=== PATIENT | male | born 1945 | race Caucasian/White ===

== ENCOUNTER 2020-06-24 08:28 | Inpatient (IN) | payer MEDICARE ==
[2020-06-24] MEDS ORDERED: Sodium Chloride 0.9% 1,000 ML IV ONE (08:34)
[2020-06-24] MEDS ORDERED: Sodium Chloride 0.9% 2.5 ML Syringe FLUSH PRN ×3 (08:34→12:02)
[2020-06-24] MEDS ORDERED: Sodium Chloride 0.9% 10 ML SDV IV PRN (08:34)
[2020-06-24] MEDS ORDERED: Sodium Chloride 0.9% 10 ML Syringe FLUSH PRN (08:34)
[2020-06-24] MEDS ORDERED: Sodium Chloride 0.9% 1,000 ML IV STA (08:34)
[2020-06-24] MEDS ORDERED: Ondansetron 4 MG/2 ML SDV IVPUSH ONE (08:36)
--- NOTE | 2020-06-24 09:03 | CT ---
Indication: Stroke Technique: Volumetric multidetector CT images of the head were obtained without the administration of low osmolar intravenous contrast. Comparison: None available Findings: There is no intra-axial or extra-axial fluid collection. There is no mass effect or midline shift. There is age-related cortical atrophy with mild sulcal widening and ex vacuo dilatation of the lateral ventricles. There are old lacunar changes of the basal ganglia. There is mild to moderate chronic small vessel disease change within the subcortical and periventricular white matter. There is demonstration of questionable lost marques-white differentiation of the medial superior aspect of the right cerebellum versus beam hardening artifact changes. Otherwise, the marques-white differentiation is grossly preserved. The orbits and their contents are grossly within normal limits. The bony calvarium is grossly intact. The paranasal sinuses are clear. The mastoid air cells are well aerated. Impression: Age related changes of the brain with questionable evolving loss of marques-white differentiation within the right superior and inferior cerebellum which may represent subacute infarct. Follow-up with MRI may be useful for improved characterization. No evidence of intracranial hemorrhage. Please note that all CT scans at this facility use dose modulation, iterative reconstruction, and/or weight-based dosing when appropriate to reduce radiation dose to as low as reasonably achievable. Dictated by Ji Mata MD @ 06/24/2020 9:03:[address] Ji Mata @ Jun 24 2020 9:03AM
--- NOTE | 2020-06-24 09:20 | CR ---
Indication: Possible stroke Comparison: None available. Technique: Single AP view chest Findings: There is hyperinflation and chronic interstitial change. There is no focal consolidation, effusion, or pneumothorax. The cardiac silhouette is mildly prominent with minimal aortic tortuosity. The bony thorax is grossly intact. Impression: Hyperinflation and chronic interstitial changes without evidence of dense consolidation. Dictated by Ji Mata MD @ 06/24/2020 9:19:[address] Ji Mata @ Jun 24 2020 9:19AM
--- NOTE | 2020-06-24 09:26 | EDM.PDOC ---
ED HPI GENERAL MEDICAL PROBLEM - General Chief Complaint: Neuro Symptoms/Deficits Stated Complaint: EMS Time Seen by Provider: 06/24/20 08:57 - History of Present Illness INITIAL COMMENTS - FREE TEXT/NARRATIVE: HISTORY AND PHYSICAL: History of present illness: This is a 74-year-old gentleman with no significant past medical history who presents ER today secondary to new onset slurred speech, dizziness, gait instability that started yesterday. Patient reports his last known well was yesterday approximately 5 PM. Patient reports that he related all the symptoms secondary to what he felt was related to food poisoning. Patient reports that starting yesterday he had a significant amount of nausea, vomiting, diarrhea. Patient reports that he feels extremely dehydrated. Patient reports that he is had over 10 episodes of vomiting yesterday with 2 loose bowel movements. Patient reports that he does not believe his emesis is secondary to the sensation of vertigo/being on a roller coaster and rather he feels that it is related more to an uneasy feeling in his stomach. Patient reports that yesterday around 5 PM he started having difficulty walking and he related that secondary to his dehydration. Patient denies any recent fevers, shakes, chills. Patient denies any double vision or blurred vision. Patient does report that he feels a his speech is somewhat pressured but felt that this was secondary to his mouth being extremely dry last night. Patient denies any dysuria, frequency, urgency, chest pain, shortness of breath. Patient reports that he has no abdominal pain although he feels "queasy "in his stomach. Patient denies any weakness to his upper or lower extremities. Patient denies any paresthesias to his upper or lower extremities. Patient denies any loss of bowel or bladder function. Patient denies any headache, neck pain. Patient denies any recent falls or head trauma. Patient denies any history of hypertension, diabetes, liver, lung, kidney problems. Patient denies any prior TIA/stroke/CAD in the past. Patient denies any prior abdominal or chest surgeries. Patient denies any recent cancers. Patient has any tobacco, alcohol, drugs. Patient reports that he currently lives alone in company housing. Review of systems: As per history of present illness and below otherwise all systems reviewed and negative. Past medical history: As per history of present illness and as reviewed below otherwise noncontributory. Surgical history: As per history of present illness and as reviewed below otherwise noncontributory. Social history: No reported history of drug abuse. Family history: As per history of present illness and as reviewed below otherwise noncontributory. Physical exam: This patient was seen and evaluated during the 2019 SARS-CoV-2 novel coronavirus pandemic period. Community viral transmission is ongoing at time of this encounter and the emergency department is operating under pandemic response procedures. Constitutional: Patient is oriented to person, place, and time. Appears well- developed and well-nourished. No distress. HEENT: Moist mucous membranes Head: Normocephalic and atraumatic Eyes: Right eye exhibits no discharge. Left eye exhibits no discharge. No scleral icterus Neck: Normal range of motion. No tracheal deviation present. Cardiovascular: Normal rate and regular rhythm. Pulmonary: Effort normal, no respiratory distress. Abdominal: No distention Musculoskeletal: Normal range of motion Neurologic: Alert and oriented to person, place and time. Skin: [place], warm and dry. Psychiatric: Normal mood and affect. Behavior is normal. Judgment and thought content normal. Nursing note and vital signs have been reviewed Neuro: A&Ox3. Cranial nerves II-XII grossly intact, 5/5 strength to bilateral upper and lower extremities, sensation intact to bilateral upper and lower extremities, positive nystagmus on both left lateral and right lateral gaze, PERRLA, EOMI, slightly pressured speech with intermittent episodes of difficulty saying particular words however upon repeating the word patient is able to say correctly, proprioception intact to bilateral lower extremities, patient has difficulty with ocuaoc-[id number] with right-sided llsdlj-rt-[id number] worse than left- sided pehsyk-zj-dlvz. Patient has slight difficulty with uqng-ep-[id number]. Gait not tested secondary to patient reporting he feels unsteady. 1a) Level of consciousness: 0=alert; 1=not alert but arousable by minor stimulation; 2=not alert: requires repeated stimulation to attend or is obtunded and requires strong or painful stimulation to make movements; 3=responds only with reflex motor or autonomic effects or totally unresponsive, flaccid and areflexic SCORE 0 1b) LOC questions ("what month is it?", "how old are you?"): 0=answers both correctly; 1=answers one correctly; 2=answers neither correctly SCORE 0 1c) LOC commands (command patient to "open and close your eyes. [place] [place] and release your hand.): 0=performs both correctly; 1=performs one correctly; 2=performs neither correctly SCORE 0 2) Best gaze ("follow my finger"): 0=normal; 1=partial gaze palsy; 2=forced deviation or total gaze paresis SCORE 0 3) Visual chua (use confrontation, finger counting, or visual threat. confront upper/lower quadrants of visual field): 0=no visual loss; 1=partial hemianopsia; 2=complete hemianopsia; 3=bilateral hemianopsia SCORE 0 4) Facial palsy (by words or pantomime, encourage patient to: "Show me your teeth. Raise your eyebrows. Close your eyes."): 0=normal symmetrical movement; 1=minor paralysis (flattened nasolabial fold, asymmetry on smiling); 2=partial paralysis (lower face); 3=complete paralysis SCORE 0 5) Arm motor (alternately position patient's arms. extend each arm with palms down [90 degrees if sitting, 45 degrees if supine] - test each arm in turn and start with nonparetic arm first): 0=no drift; 1=drift (arm falls before 10 seconds); 2=some effort vs. gravity; 3=no effort vs. gravity; 4=no movement; UN (untestable)=amputation or joint fusion SCORE 0 6) Leg motor (alternately position patient's legs. extend each leg [30 degrees, always while supine] - test nonparetic leg first): 0=no drift; 1=drift (leg falls before 5 seconds); 2=some effort vs. gravity; 3= no effort vs. gravity; 4=no movement; UN=amputation or joint fusion SCORE 0 7) Limb ataxia (ask patient [eyes open] to: "touch your finger to your nose. touch your heel to your sherman"): 0=absent; 1=present in one limb; 2=present in two or more limbs; UN=amputation or joint fusion SCORE 2 8) Sensory (test as many body parts as possible [arms and not hands, legs, trunk, face] for sensation using pinprick or noxious stimuli [in the obtunded or aphasic patient]): 0=normal; 1=mild to moderate sensory loss; 2=severe to total sensory loss SCORE 0 9) Best language (using pictures and a sentence list, ask patient to "describe what you see in this picture. Name the items in this picture. Read these sentences"): 0=no aphasia, 1=mild to moderate aphasia; 2=severe aphasia; 3=mute, global aphasia SCORE 0 10) Dysarthria (using a simple word list, ask patient to: "read these words" or "repeat these words"): 0=normal articulation; 1=mild to moderate dysarthria; 2=severe dysarthria; UN=intubated or other physical barrier SCORE [0] 11) Extinction and inattention (sufficient information to determine these scores may have been obtained during the prior testing): 0=no abnormality; 1=visual, tactile, auditory, spatial or personal inattention; 2=profound sheila-inattention or extinction to more than one modality SCORE 0 TOTAL NIHSS Score:2 Diagnostics: EKG: As interpreted by ER physician: Benigno: Nonspecific ST-T wave abnormalities Normal axis No evidence of ST elevation CA Normal sinus rhythm heart rate of 73 Chest Xray: Normal cardiac silhouette No infiltrates or effusions identified. No PTX No evidence of acute bony fracture. As interpreted by ER MD: Benigno CT scan of the head reveals no evidence of intracranial hemorrhage. Age-related changes of the brain with questionable evolving loss of marques-white differentiation within the right superior and inferior cerebellum which may represent subacute infarct. Follow-up with MRI may be useful for improved characterization. CTA of head and neck reveals an abrupt cut off of perfusion of the right vertebral artery just above the origin extending from the thoracic inlet to the V4 portion with minimal perfusion of the distal right vertebral artery from the patent dominant left vertebral artery. 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 CTA of head: there is demonstration of abrupt cut off of the right vertebral artery with minimal likely collateral perfusion from the patent left vertebral artery likely representing dissection. CBC, CMP within normal limits. Accu-Chek: Within normal limits Therapeutics: Aspirin 325 mg p.o. Assessment and plan: This is a 74-year-old gentleman who presents ER today secondary to dizziness, ataxia and unstable gait with significant mount of nausea vomiting and diarrhea. Patient's presentation on exam is consistent with an acute cerebellar infarct. Patient's last known well was approximately 16 hours prior to arrival which puts him outside the window for thrombolytic therapy. Patient CT scan reveals a likely subacute cerebellar infarct. Patient will be given aspirin 325 mg p.o. in the ED. Patient will need admission. Case discussed with Dr. Espinoza, concern regarding CTA of the head and neck revealing evolving vertebral artery dissection. At this time, she is recommending initiating antiplatelet therapy with aspirin 325 mg and she will consult for possible anticoagulation. She feels patient would be stable and can be managed here at [facility] without the need to transfer to a higher level of care. Definitive disposition and diagnosis as appropriate pending reevaluation and review of above. - Related Data Allergies Allergy/AdvReac Type Severity Reaction Status Date / Time No Known Allergies Allergy Verified 06/24/20 13:21 Home Meds: Home Meds Multivitamin 1 each PO DAILY 06/24/20 [History] ED ROS GENERAL - Review of Systems Review Of Systems: See Below ED EXAM, GENERAL - Physical Exam Exam: See Below Course - Vital Signs Last Recorded V/S: Last Vital Signs Temp 99.2 F 06/24/20 16:19 Pulse 69 06/24/20 16:19 Resp 16 06/24/20 16:19 BP 145/72 H 06/24/20 16:19 Pulse Ox 96 06/24/20 16:19 - Orders/Labs/Meds Orders: Active Orders 24 hr Category Date Time Status Patient Status [ADT] Routine ADT 06/24/20 10:09 Active Nursing Bedside Swallow Screen [RC] ASDIRECTED Care 06/24/20 08:34 Active Medication Orders Acetaminophen (Acetaminophen 325 Mg Tab) 650 mg PO Q4H PRN PRN Reason: Pain (Mild 1-3)/fever Last Admin: 06/24/20 16:14 Dose: 650 mg Documented by: SONYA Aspirin (Aspirin 325 Mg Tab.Ec) 325 mg PO DAILY BLANCHE Atorvastatin Calcium (Atorvastatin 40 Mg Tab) 80 mg PO BEDTIME BLANCHE Docusate Sodium (Docusate Sodium 100 Mg Cap) 100 mg PO DAILY BLANCHE Labetalol HCl (Labetalol 100 Mg/20 Ml Mdv) 20 mg IVPUSH Q4H PRN PRN Reason: BP over 180/105 Multivitamins/Minerals/Vitamin C (Multivitamin Tab) 1 tab PO DAILY [facility] Ondansetron HCl (Ondansetron 4 Mg/2 Ml Sdv) 4 mg IVPUSH Q4H PRN PRN Reason: Nausea Sodium Chloride (Sodium Chloride 0.9% 2.5 Ml Syringe) 2.5 ml FLUSH ASDIRECTED PRN PRN Reason: Keep Vein Open Labs: Laboratory Tests 06/24/20 06/24/20 06/24/20 Range/Units 08:24 08:24 08:25 WBC 15.72 H (4.0-11.0) K/uL RBC 5.35 (4.50-5.90) M/uL Hgb 15.7 (13.0-17.0) g/dL Hct 45.3 (38.0-50.0) % MCV 84.7 (80.0-98.0) fL MCH 29.3 (27.0-32.0) pg MCHC 34.7 (31.0-37.0) g/dL RDW Std Deviation 44.9 (28.0-62.0) fl RDW Coeff of [place] 15 (11.0-15.0) % Plt Count 215 (150-400) K/uL MPV 11.00 (7.40-12.00) fL Neut % (Auto) 84.9 H (48.0-80.0) % Lymph % (Auto) 10.0 L (16.0-40.0) % [place] % (Auto) 4.9 (0.0-15.0) % Eos % (Auto) 0.1 (0.0-7.0) % Baso % (Auto) 0.1 (0.0-1.5) % Neut # (Auto) 13.4 H (1.4-5.7) K/uL Lymph # (Auto) 1.6 (0.6-2.4) K/uL [place] # (Auto) 0.8 (0.0-0.8) K/uL Eos # (Auto) 0.0 (0.0-0.7) K/uL Baso # (Auto) 0.0 (0.0-0.1) K/uL Nucleated RBC % 0.0 /100WBC Nucleated RBCs # 0 K/uL INR APTT (18.6-31.3) SEC Sodium (136-148) mmol/L Potassium (3.5-5.1) mmol/L Chloride (98-107) mmol/L Carbon Dioxide (21.0-32.0) mmol/L BUN (7.0-18.0) mg/dL Creatinine (0.8-1.3) mg/dL Est Cr Clr Drug Dosing mL/min Estimated GFR (MDRD) ml/min Glucose (74-106) mg/dL Hemoglobin A1c 5.7 (4.5 - 6.2) % Calcium (8.5-10.1) mg/dL Total Bilirubin (0.2-1.0) mg/dL AST (15-37) IU/L ALT (14-63) IU/L Alkaline Phosphatase (46-116) U/L Troponin I (0.000-0.056) ng/mL Total Protein (6.4-8.2) g/dL Albumin (3.4-5.0) g/dL Globulin (2.6-4.0) g/dL Albumin/Globulin Ratio (0.9-1.6) Lipase (73-393) U/L Free T4 1.34 (0.76-1.46) ng/dL Free T3 2.30 (2.18-3.98) pg/mL TSH 3rd Generation (0.36-3.74) uIU/mL SARS-CoV-2 RNA ([facility]) (NEGATIVE) 06/24/20 06/24/20 06/24/20 Range/Units 08:25 08:25 09:37 WBC (4.0-11.0) K/uL RBC (4.50-5.90) M/uL Hgb (13.0-17.0) g/dL Hct (38.0-50.0) % MCV (80.0-98.0) fL MCH (27.0-32.0) pg MCHC (31.0-37.0) g/dL RDW Std Deviation (28.0-62.0) fl RDW Coeff of [place] (11.0-15.0) % Plt Count (150-400) K/uL MPV (7.40-12.00) fL Neut % (Auto) (48.0-80.0) % Lymph % (Auto) (16.0-40.0) % [place] % (Auto) (0.0-15.0) % Eos % (Auto) (0.0-7.0) % Baso % (Auto) (0.0-1.5) % Neut # (Auto) (1.4-5.7) K/uL Lymph # (Auto) (0.6-2.4) K/uL [place] # (Auto) (0.0-0.8) K/uL Eos # (Auto) (0.0-0.7) K/uL Baso # (Auto) (0.0-0.1) K/uL Nucleated RBC % /100WBC Nucleated RBCs # K/uL INR 1.17 APTT 25.5 (18.6-31.3) SEC Sodium 139 (136-148) mmol/L Potassium 3.5 (3.5-5.1) mmol/L Chloride 104 (98-107) mmol/L Carbon Dioxide 23.6 (21.0-32.0) mmol/L BUN 15 (7.0-18.0) mg/dL Creatinine 1.0 (0.8-1.3) mg/dL Est Cr Clr Drug Dosing 76.49 mL/min Estimated GFR (MDRD) > 60.0 ml/min Glucose 136 H (74-106) mg/dL Hemoglobin A1c (4.5 - 6.2) % Calcium 9.1 (8.5-10.1) mg/dL Total Bilirubin 0.4 (0.2-1.0) mg/dL AST 18 (15-37) IU/L ALT 25 (14-63) IU/L Alkaline Phosphatase 75 (46-116) U/L Troponin I < 0.050 (0.000-0.056) ng/mL Total Protein 7.5 (6.4-8.2) g/dL Albumin 3.8 (3.4-5.0) g/dL Globulin 3.7 (2.6-4.0) g/dL Albumin/Globulin Ratio 1.0 (0.9-1.6) Lipase 75 (73-393) U/L Free T4 (0.76-1.46) ng/dL Free T3 (2.18-3.98) pg/mL TSH 3rd Generation 0.01 L (0.36-3.74) uIU/mL SARS-CoV-2 RNA ([facility]) NEGATIVE (NEGATIVE) Meds: Medications Generic Name Dose Route Start Last Admin Trade Name Freq PRN Reason Stop Dose Admin Acetaminophen 650 mg 06/24/20 12:02 06/24/20 16:14 Acetaminophen 325 Mg Tab PO 650 mg Q4H PRN Administration Pain (Mild 1-3)/fever Aspirin 325 mg 06/25/20 09:00 Aspirin 325 Mg Tab.Ec PO DAILY [facility] Atorvastatin Calcium 80 mg 06/24/20 21:00 Atorvastatin 40 Mg Tab PO BEDTIME [facility] Docusate Sodium 100 mg 06/25/20 09:00 Docusate Sodium 100 Mg Cap PO DAILY [facility] Labetalol HCl 20 mg 06/24/20 12:54 Labetalol 100 Mg/20 Ml Mdv IVPUSH Q4H PRN BP over 180/105 Multivitamins/Minerals/Vitamin C 1 tab 06/25/20 09:00 Multivitamin Tab PO DAILY [facility] Ondansetron HCl 4 mg 06/24/20 12:02 Ondansetron 4 Mg/2 Ml Sdv IVPUSH Q4H PRN Nausea Sodium Chloride 2.5 ml 06/24/20 12:02 Sodium Chloride 0.9% 2.5 Ml Syringe FLUSH ASDIRECTED PRN Keep Vein Open Discontinued Medications Generic Name Dose Route Start Last Admin Trade Name Freq PRN Reason Stop Dose Admin Aspirin 325 mg 06/24/20 09:57 06/24/20 10:07 Aspirin 325 Mg Tab PO 06/24/20 09:58 325 mg ONETIME ONE Administration Sodium Chloride 1,000 mls @ 125 mls/hr 06/24/20 08:34 06/24/20 09:15 Normal Saline IV 06/24/20 16:33 125 mls/hr NOW STA Administration Sodium Chloride 1,000 mls @ 999 mls/hr 06/24/20 08:34 06/24/20 09:15 Normal Saline IV 06/24/20 09:34 999 mls/hr BOLUS ONE Administration Iopamidol 100 ml 06/24/20 10:08 06/24/20 10:09 Iopamidol 755 Mg/Ml 500 Ml Multipack Bottle IVPUSH 06/24/20 10:09 100 ml ONETIME STA Administration Ondansetron HCl 4 mg 06/24/20 08:36 06/24/20 09:15 Ondansetron 4 Mg/2 Ml Sdv IVPUSH 06/24/20 08:37 4 mg ONETIME ONE Administration Sodium Chloride 2.5 ml 06/24/20 08:34 Sodium Chloride 0.9% 2.5 Ml Syringe FLUSH ASDIRECTED PRN Keep Vein Open Sodium Chloride 10 ml 06/24/20 08:34 06/24/20 09:15 Sodium Chloride 0.9% 10 Ml Syringe FLUSH 10 ml ASDIRECTED PRN Administration Keep Vein Open Sodium Chloride 2.5 ml 06/24/20 08:34 06/24/20 09:15 Sodium Chloride 0.9% 2.5 Ml Syringe FLUSH 2.5 ml ASDIRECTED PRN Administration Keep Vein Open Sodium Chloride 10 ml 06/24/20 08:34 Sodium Chloride 0.9% 10 Ml Sdv IV ASDIRECTED PRN IV Use Departure - Departure Time of Disposition: 19:16 Disposition: Admitted As Inpatient 67 Condition: Good Clinical Impression: Vertebral artery dissection, Cerebellar stroke - Discharge Information Sepsis Event Note (ED) - Evaluation Sepsis Screening Result: No Definite Risk - Focused Exam Vital Signs: Vital Signs Temp Pulse Resp BP Pulse Ox 06/24/20 10:39 73 16 164/88 H 96 06/24/20 10:10 74 16 161/85 H 97 06/24/20 09:55 76 16 153/77 H 95 06/24/20 09:40 81 16 154/80 H 95 06/24/20 09:25 80 16 155/83 H 94 L 06/24/20 09:11 81 17 163/84 H 94 L 06/24/20 08:28 99.5 F 106 H 17 161/79 H 98 - My Orders Last 24 Hours: My Active Orders 06/24/20 08:34 Nursing Bedside Swallow Screen [RC] ASDIRECTED 06/24/20 10:09 Patient Status [ADT] Routine - Assessment/Plan Last 24 Hours: My Active Orders 06/24/20 08:34 Nursing Bedside Swallow Screen [RC] ASDIRECTED 06/24/20 10:09 Patient Status [ADT] Routine
--- NOTE | 2020-06-24 09:28 | CT ---
DATE: 06/24/2020. CLINICAL HISTORY: Patient with acute stroke. TECHNIQUE: Standard helical CT image acquisition through the head and neck was performed after intravenous contrast bolus enhancement. Multiplanar reconstructed images were performed and interpreted. COMPARISON: Head CT dated 06/24/2020. FINDINGS: The origins of the great vessels from the aortic arch are patent. The right vertebral artery is occluded at its origin. The origin of the left vertebral artery is patent. The common carotid arteries are patent. There is no significant stenosis at the origin of the right internal carotid artery. There is no significant stenosis at the origin of the left internal carotid artery. The rest of the cervical segments of the internal carotid arteries are patent up to their intracranial segments. The right vertebral artery is occluded throughout the entirety of its cervical segment. The cervical segment of the left vertebral artery is patent. No intracranial proximal large vessel occlusion or flow-limiting luminal stenosis. The mid to distal intracranial right vertebral artery fills retrograde by way of basilar trunk. There is normal opacification of major intracranial venous structures. Emphysematous changes within the visualized upper lungs. The thyroid gland is unremarkable. There are degenerative changes in the cervical spine. IMPRESSION: 1. 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 2. No intracranial proximal large vessel occlusion or flow-limiting metal stenosis. 3. Widely patent cervical internal carotid arteries and left vertebral artery. Please note that all CT scans at this facility use dose modulation, iterative reconstruction, and/or weight-based dosing when appropriate to reduce radiation dose to as low as reasonably achievable. Dictated by Dimitrios Bowman MD @ 06/24/2020 11:43:[address] Dimitrios Bowman @ Jun 24 2020 11:43AM
[2020-06-24 09:36] LABS: CARBON DIOXIDE,CO2 23.6 mmol/L (21.0-32.0); CHLORIDE,CL 104 mmol/L (98-107); POTASSIUM,K 3.5 mmol/L (3.5-5.1); SODIUM,NA 139 mmol/L (136-148)
[2020-06-24 09:52] LABS: BLOOD UREA NITROGEN,BUN 15 mg/dL (7.0-18.0); GLUCOSE RANDOM 136 mg/dL (74-106); LIPASE 75 U/L (73-393)
[2020-06-24] MEDS ORDERED: Aspirin 325 MG Tab PO ONE (09:57)
[2020-06-24] MEDS ORDERED: Iopamidol 755 MG/ML 500 ML Multipack Bottle IVPUSH STA (10:08)
--- NOTE | 2020-06-24 11:41 | PCM.HP.2 ---
H&P History of Present Illness - General Date of Service: 06/24/20 Admit Problem/Dx: Admission Diagnosis/Problem Admission Diagnosis/Problem Cerebellar infarction Source of Information: Patient History Limitations: Reports: No Limitations - History of Present Illness Initial Comments - Free Text/Narative: This 73-year-old male with little to no past medical history presented to the ER today with complaints of balance issues along with dizziness and left upper limb numbness along with clumsiness. He reports yesterday around noonhe started having some nausea and vomiting along with diarrhea. He reports he was up vomiting most of the night. He also reports difficulty with vision as he feels that may be doubled or like his vision is crossed which he reports started maybe around 5:00 in the evening. He reports that he is having difficulty walking likely secondary to his vision and feels very out of sorts when trying to walk. He denies any trauma no recent falls or motor vehicle accidents. He denies any fevers chills, neck pain, palpitations, chest pain, shortness of breath. He denies any abdominal pain no constipation or diarrhea, no dysuria or troubles u rinating. Denies any black or bloody bowel movements. He denies recreational drug use and no alcohol use. He reports he does not use tobacco on a regular basis but does intermittently smoke cigars. He denies any family history of CAD, diabetes and or stroke. Reports his father did have a stroke in his mid 80s but otherwise most of family is otherwise healthy. In the ER leukocytosis noted at 15,000 sodium 139, potassium 3.5, BUN 15 creatinine 1.0 glucose 136. Troponin negative TSH 0.01 T4 1.34 T3 2.3 Covid negative. Due to stroke symptoms head CT was obtained which was noted to have question evolving loss of marques-white differentiation within the right superior and inferior cerebellum which may represent subacute infarct. CTA of head and neck were then obtained secondary to findings on head CT. 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 No intracranial large vessel occlusion or flow-limiting stenosis, mildly patent cervical internal carotid artery and left vertebral artery. On-call neurologist Dr. Espinoza was consulted by ER physician at this time. Patient is outside of the window for TPA and recommended initiation of antiplatelet therapy with full dose aspirin at [address] Espinoza will consult and felt patient was safe for admission within our facility. - Related Data Allergies/Adverse Reactions: Allergies Allergy/AdvReac Type Severity Reaction Status Date / Time No Known Allergies Allergy Verified 06/24/20 11:55 Home Medications: Home Meds . [No Known Home Meds] 06/24/20 [History] Past Medical History Cardiovascular History: Reports: None. Denies: Afib, Blood Clots/VTE/DVT, CAD, Stents Respiratory History: Reports: None. Denies: Asthma, COPD, PE Gastrointestinal History: Reports: None Genitourinary History: Reports: None Neurological History: Reports: None. Denies: CVA Psychiatric History: Reports: None Endocrine/Metabolic History: Reports: None. Denies: Diabetes, Type II, Obesity/BMI 30+ - Infectious Disease History Infectious Disease History: Reports: None - Past Surgical History HEENT Surgical History: Reports: None Cardiovascular Surgical History: Reports: None GI Surgical History: Reports: None Endocrine Surgical History: Reports: None Social & Family History - Family History Family Medical History: No Pertinent Family History Cardiac: Denies: Afib, Blood Clots/VTE/DVT, Cardiomyopathy, Heart Failure, [place] Neurological: Reports: CVA (father in his 80s) Endocrine/Metabolic: Reports: None - Tobacco Use Tobacco Use Status *Q: Never Tobacco User - Caffeine Use Caffeine Use: Reports: None - Recreational Drug Use Recreational Drug Use: No H&P Review of Systems - Review of Systems: Review Of Systems: See Below General: Reports: No Symptoms. Denies: Fever, Chills, Malaise, Weakness HEENT: Reports: Headaches, Vertigo, Visual Changes. Denies: Sinus Congestion Pulmonary: Reports: No Symptoms. Denies: Shortness of Breath Cardiovascular: Reports: No Symptoms. Denies: Chest Pain Gastrointestinal: Reports: No Symptoms. Denies: Abdominal Pain, Black Stool, Bloody Stool, Nausea, Vomiting Genitourinary: Reports: No Symptoms. Denies: Dysuria, Frequency, Burning Musculoskeletal: Reports: No Symptoms. Denies: Neck Pain, Arm Pain, Muscle Pain Skin: Reports: No Symptoms. Denies: Erythema, Wound Psychiatric: Reports: No Symptoms. Denies: Anxiety, Agitation Neurological: Reports: Headache, Numbness, Difficulty Walking, Change in Speech, Gait Disturbance Hematologic/Lymphatic: Reports: No Symptoms Immunologic: Reports: No Symptoms Exam - Exam Exam: See Below - Vital Signs Vital Signs: Last Vital Signs Temp 99.5 F 06/24/20 08:28 Pulse 74 06/24/20 10:10 Resp 16 06/24/20 10:10 BP 161/85 H 06/24/20 10:10 Pulse Ox 97 06/24/20 10:10 Weight: 93.894 kg - Exam General: Alert, Oriented, Cooperative HEENT: Mucosa Moist & [place], Posterior Pharynx Clear, Pupils Equal, Pupils Reactive, Other (Deviation of both eyes to Left). No: Hearing Intact (slightly hard of hearing) Neck: Supple, Trachea Midline Lungs: Clear to Auscultation, Normal Respiratory Effort Cardiovascular: Regular Rate, Regular Rhythm, Normal S1, Normal S2. No: Irregular Rhythm, Tachycardia GI/Abdominal Exam: Normal Bowel Sounds, Soft, Non-Tender Extremities: Normal Inspection, Normal Range of Motion, Non-Tender, No Pedal Edema Skin: Warm, Dry, Intact Neurological: Reflexes Equal Bilateral, Strength Equal Bilateral. No: Normal Gait, Normal Speech (pressured and slurring noted) Neuro Extensive - Mental Status: Alert, Oriented x3, Normal Mood/Affect, Normal Cognition, Memory Intact Neuro Extensive - Motor, Sensory, Reflexes: Abnormal Finger to Nose, Abnormal Heel to [place], Abnormal Sensation (numbness noted to posterior L upper limb), Mot or/Sensory Deficits. No: Normal Gait Psychiatric: Alert, Normal Affect, Normal Mood - Patient Data Lab Results Last 24 hrs: Laboratory Results - last 24 hr 06/24/20 06/24/20 06/24/20 Range/Units 08:25 08:25 08:25 WBC 15.72 H (4.0-11.0) K/uL RBC 5.35 (4.50-5.90) M/uL Hgb 15.7 (13.0-17.0) g/dL Hct 45.3 (38.0-50.0) % MCV 84.7 (80.0-98.0) fL MCH 29.3 (27.0-32.0) pg MCHC 34.7 (31.0-37.0) g/dL RDW Std Deviation 44.9 (28.0-62.0) fl RDW Coeff of Madina 15 (11.0-15.0) % Plt Count 215 (150-400) K/uL MPV 11.00 (7.40-12.00) fL Neut % (Auto) 84.9 H (48.0-80.0) % Lymph % (Auto) 10.0 L (16.0-40.0) % [place] % (Auto) 4.9 (0.0-15.0) % Eos % (Auto) 0.1 (0.0-7.0) % Baso % (Auto) 0.1 (0.0-1.5) % Neut # (Auto) 13.4 H (1.4-5.7) K/uL Lymph # (Auto) 1.6 (0.6-2.4) K/uL [place] # (Auto) 0.8 (0.0-0.8) K/uL Eos # (Auto) 0.0 (0.0-0.7) K/uL Baso # (Auto) 0.0 (0.0-0.1) K/uL Nucleated RBC % 0.0 /100WBC Nucleated RBCs # 0 K/uL INR 1.17 APTT 25.5 (18.6-31.3) SEC Sodium 139 (136-148) mmol/L Potassium 3.5 (3.5-5.1) mmol/L Chloride 104 (98-107) mmol/L Carbon Dioxide 23.6 (21.0-32.0) mmol/L BUN 15 (7.0-18.0) mg/dL Creatinine 1.0 (0.8-1.3) mg/dL Est Cr Clr Drug Dosing 76.49 mL/min Estimated GFR (MDRD) > 60.0 ml/min Glucose 136 H (74-106) mg/dL Calcium 9.1 (8.5-10.1) mg/dL Total Bilirubin 0.4 (0.2-1.0) mg/dL AST 18 (15-37) IU/L ALT 25 (14-63) IU/L Alkaline Phosphatase 75 (46-116) U/L Troponin I < 0.050 (0.000-0.056) ng/mL Total Protein 7.5 (6.4-8.2) g/dL Albumin 3.8 (3.4-5.0) g/dL Globulin 3.7 (2.6-4.0) g/dL Albumin/Globulin Ratio 1.0 (0.9-1.6) Lipase 75 (73-393) U/L TSH 3rd Generation 0.01 L (0.36-3.74) uIU/mL SARS-CoV-2 RNA ([facility]) (NEGATIVE) 06/24/20 Range/Units 09:37 WBC (4.0-11.0) K/uL RBC (4.50-5.90) M/uL Hgb (13.0-17.0) g/dL Hct (38.0-50.0) % MCV (80.0-98.0) fL MCH (27.0-32.0) pg MCHC (31.0-37.0) g/dL RDW Std Deviation (28.0-62.0) fl RDW Coeff of Madina (11.0-15.0) % Plt Count (150-400) K/uL MPV (7.40-12.00) fL Neut % (Auto) (48.0-80.0) % Lymph % (Auto) (16.0-40.0) % [place] % (Auto) (0.0-15.0) % Eos % (Auto) (0.0-7.0) % Baso % (Auto) (0.0-1.5) % Neut # (Auto) (1.4-5.7) K/uL Lymph # (Auto) (0.6-2.4) K/uL [place] # (Auto) (0.0-0.8) K/uL Eos # (Auto) (0.0-0.7) K/uL Baso # (Auto) (0.0-0.1) K/uL Nucleated RBC % /100WBC Nucleated RBCs # K/uL INR APTT (18.6-31.3) SEC Sodium (136-148) mmol/L Potassium (3.5-5.1) mmol/L Chloride (98-107) mmol/L Carbon Dioxide (21.0-32.0) mmol/L BUN (7.0-18.0) mg/dL Creatinine (0.8-1.3) mg/dL Est Cr Clr Drug Dosing mL/min Estimated GFR (MDRD) ml/min Glucose (74-106) mg/dL Calcium (8.5-10.1) mg/dL Total Bilirubin (0.2-1.0) mg/dL AST (15-37) IU/L ALT (14-63) IU/L Alkaline Phosphatase (46-116) U/L Troponin I (0.000-0.056) ng/mL Total Protein (6.4-8.2) g/dL Albumin (3.4-5.0) g/dL Globulin (2.6-4.0) g/dL Albumin/Globulin Ratio (0.9-1.6) Lipase (73-393) U/L TSH 3rd Generation (0.36-3.74) uIU/mL SARS-CoV-2 RNA ([facility]) NEGATIVE (NEGATIVE) Result Diagrams: 06/24/20 08:25 06/24/20 08:25 Sepsis Event Note - Evaluation Sepsis Screening Result: No Definite Risk - Focused Exam Vital Signs: Vital Signs Temp Pulse Resp BP Pulse Ox 06/24/20 10:10 74 16 161/85 H 97 06/24/20 09:55 76 16 153/77 H 95 06/24/20 09:40 81 16 154/80 H 95 06/24/20 09:25 80 16 155/83 H 94 L 06/24/20 09:11 81 17 163/84 H 94 L 06/24/20 08:28 99.5 F 106 H 17 161/79 H 98 - Problem List (1) 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 DIRECTED Care 06/24/20 08:34 Active EKG Documentation Completion [RC] STAT Care 06/24/20 08:34 Active Height and Weight [RC] UPON Care 06/24/20 08:34 Active Initiate Acute Stroke Protocol [RC] STAT Care 06/24/20 08:34 Active NIH Stroke Scale [RC] ASDIRECTED Care 06/24/20 08:34 Active Nursing Bedside Swallow Screen [RC] ASDIRECTED Care 06/24/20 08:34 Active Oxygen Therapy [RC] ASDIRECTED Care 06/24/20 08:34 Active Peripheral IV Care [RC] ASDIRECTED Care 06/24/20 08:35 Active Stroke Education, General [RC] Click to Edit Care 06/24/20 08:34 Active Vital Signs [RC] Q15M Care 06/24/20 08:34 Active UA RFX FOZIA AND CULT IF INDIC [URIN] Stat Lab 06/24/20 08:34 Ordered Sodium Chloride 0.9% [Normal Saline] Med 06/24/20 08:34 Active 10 ml IV ASDIRECTED PRN Sodium Chloride 0.9% [Normal Saline] 1,000 ml Med 06/24/20 08:34 Active IV NOW Sodium Chloride 0.9% [Saline Flush] Med 06/24/20 08:34 Active 10 ml FLUSH ASDIRECTED PRN Sodium Chloride 0.9% [Saline Flush] Med 06/24/20 08:34 Active 2.5 ml FLUSH ASDIRECTED PRN Sodium Chloride 0.9% [Saline Flush] Med 06/24/20 08:34 Active 2.5 ml FLUSH ASDIRECTED PRN Peripheral IV Insertion Adult [OM.PC] Stat Oth 06/24/20 08:34 Ordered Peripheral IV Insertion Adult [OM.PC] Stat Oth 06/24/20 08:34 Ordered Medication Orders Sodium Chloride (Normal Saline) 1,000 mls @ 125 mls/hr IV NOW STA Stop: 06/24/20 16:33 Last Admin: 06/24/20 09:15 Dose: 125 mls/hr Documented by: LAVELLE Sodium Chloride (Sodium Chloride 0.9% 2.5 Ml Syringe) 2.5 ml FLUSH ASDIRECTED PRN PRN Reason: Keep Vein Open Sodium Chloride (Sodium Chloride 0.9% 10 Ml Syringe) 10 ml FLUSH ASDIRECTED PRN PRN Reason: Keep Vein Open Last Admin: 06/24/20 09:15 Dose: 10 ml Documented by: LAVELLE Sodium Chloride (Sodium Chloride 0.9% 2.5 Ml Syringe) 2.5 ml FLUSH ASDIRECTED PRN PRN Reason: Keep Vein Open Last Admin: 06/24/20 09:15 Dose: 2.5 ml Documented by: LAVELLE Sodium Chloride (Sodium Chloride 0.9% 10 Ml Sdv) 10 ml IV ASDIRECTED PRN PRN Reason: IV Use Assessment/Plan Comment:: This 74-year-old male admitted with acute Ischemic stroke due to vertebral artery dissection 1. Acute ischemic stroke -Appreciate Dr. Espinoza's consultation and recommendations. -Patient outside of window for TPA due to symptom onset timing and was yesterday afternoon/evening -Brain without contrast ordered to further evaluate extent of stroke -Echo ordered -Monitor on telemetry for any arrhythmias -Neuro and NIH scales every 4 hours for 24 hours. -Continue aspirin 325 mg daily for 10 to 14 days then consider transition to anticoagulation with warfarin or DOAC -Start a atorvastatin 80 obtain fasting lipid panel in the a.m. -A1c 5.7 -TSH 0.01 consider reevaluation of this as an outpatient. -Permissive hypertension up until blood pressures of 180/105 we will order labetalol as needed -Consult PT OT to evaluate and treat, speech therapy unavailable at this time -Hold any type of anticoagulation as transformation to hemorrhagic stroke as possible and would be catastrophic. -Arrange follow-up with Dr. Espinoza as well as PCP. -Consider Zio patch on discharge -Recheck labwork in am, leukocytosis could be reactive from CVA. UA pending. No other signs of infection currently. VTE prophylaxis: SCDs only due to risk of transformation to hemorrhagic stroke. CODE STATUS: DNR/DNI per discussion with patient Dispo: We will need monitoring for the next 2 to 3 days.
[2020-06-24] MEDS ORDERED: Ondansetron 4 MG/2 ML SDV IVPUSH PRN (12:02)
[2020-06-24 12:29] LABS: HEMOGLOBIN A1C 5.7 %
--- NOTE | 2020-06-24 12:37 | PCM.CONS ---
H&P History of Present Illness - General Date of Service: 06/24/20 Admit Problem/Dx: Admission Diagnosis/Problem Admission Diagnosis/Problem Cerebellar infarction - History of Present Illness Initial Comments - Free Text/Narative: At about noon yesterday, he developed nausea, vomiting and diarrhea. He was up vomiting throughout the night and noted dizziness, vertigo imbalance, left upper limb numbness and clumsiness during the night. He has mild headache currently. He endorses diplopia. He smokes. - Related Data Allergies/Adverse Reactions: Allergies Allergy/AdvReac Type Severity Reaction Status Date / Time No Known Allergies Allergy Verified 06/24/20 11:55 Home Medications: Home Meds . [No Known Home Meds] 06/24/20 [History] Past Medical History - Infectious Disease History Infectious Disease History: Reports: None Social & Family History - Family History Family Medical History: No Pertinent Family History - Tobacco Use Tobacco Use Status *Q: Current Some Day Tobacco User - Caffeine Use Caffeine Use: Reports: None - Recreational Drug Use Recreational Drug Use: No H&P Review of Systems - Review of Systems: Review Of Systems: See Below General: Reports: No Symptoms HEENT: Reports: Headaches Cardiovascular: Reports: No Symptoms Gastrointestinal: Reports: Diarrhea, Vomiting Exam - Exam Exam: See Below - Vital Signs Vital Signs: Last Vital Signs Temp 37.4 C 06/24/20 12:04 Pulse 73 06/24/20 12:04 Resp 18 06/24/20 12:04 BP 137/75 06/24/20 12:04 Pulse Ox 95 06/24/20 12:04 Weight: 93.894 kg - Exam Physical Exam Comments:: Neurological: Mental Status: General: Normal activity, good hygiene, appropriate appearance. Level of consciousness: Awake, alert. Orientation: Oriented to person, place, time and situation. Cranial Nerves: VFFTC, PERRL, Marked deviation of both eyes to left, slightly dysconjugate,intermittent nystagmus, Mild cerebellar dysarthria. Motor: Power 5/5 throughout. Sensation: Sensation is intact to temperature. Deep tendon reflexes: 3+ at knees, o/w 2+ Coordination: Finger to nose mildly impaired on the left, heel to sherman impaired bilaterally. Gait: Not assessed. - Patient Data Lab Results Last 24 hrs: Laboratory Results - last 24 hr 06/24/20 06/24/20 06/24/20 Range/Units 08:24 08:25 08:25 WBC 15.72 H (4.0-11.0) K/uL RBC 5.35 (4.50-5.90) M/uL Hgb 15.7 (13.0-17.0) g/dL Hct 45.3 (38.0-50.0) % MCV 84.7 (80.0-98.0) fL MCH 29.3 (27.0-32.0) pg MCHC 34.7 (31.0-37.0) g/dL RDW Std Deviation 44.9 (28.0-62.0) fl RDW Coeff of Madina 15 (11.0-15.0) % Plt Count 215 (150-400) K/uL MPV 11.00 (7.40-12.00) fL Neut % (Auto) 84.9 H (48.0-80.0) % Lymph % (Auto) 10.0 L (16.0-40.0) % [place] % (Auto) 4.9 (0.0-15.0) % Eos % (Auto) 0.1 (0.0-7.0) % Baso % (Auto) 0.1 (0.0-1.5) % Neut # (Auto) 13.4 H (1.4-5.7) K/uL Lymph # (Auto) 1.6 (0.6-2.4) K/uL [place] # (Auto) 0.8 (0.0-0.8) K/uL Eos # (Auto) 0.0 (0.0-0.7) K/uL Baso # (Auto) 0.0 (0.0-0.1) K/uL Nucleated RBC % 0.0 /100WBC Nucleated RBCs # 0 K/uL INR 1.17 APTT 25.5 (18.6-31.3) SEC Sodium (136-148) mmol/L Potassium (3.5-5.1) mmol/L Chloride (98-107) mmol/L Carbon Dioxide (21.0-32.0) mmol/L BUN (7.0-18.0) mg/dL Creatinine (0.8-1.3) mg/dL Est Cr Clr Drug Dosing mL/min Estimated GFR (MDRD) ml/min Glucose (74-106) mg/dL Hemoglobin A1c 5.7 (4.5 - 6.2) % Calcium (8.5-10.1) mg/dL Total Bilirubin (0.2-1.0) mg/dL AST (15-37) IU/L ALT (14-63) IU/L Alkaline Phosphatase (46-116) U/L Troponin I (0.000-0.056) ng/mL Total Protein (6.4-8.2) g/dL Albumin (3.4-5.0) g/dL Globulin (2.6-4.0) g/dL Albumin/Globulin Ratio (0.9-1.6) Lipase (73-393) U/L TSH 3rd Generation (0.36-3.74) uIU/mL SARS-CoV-2 RNA ([facility]) (NEGATIVE) 06/24/20 06/24/20 Range/Units 08:25 09:37 WBC (4.0-11.0) K/uL RBC (4.50-5.90) M/uL Hgb (13.0-17.0) g/dL Hct (38.0-50.0) % MCV (80.0-98.0) fL MCH (27.0-32.0) pg MCHC (31.0-37.0) g/dL RDW Std Deviation (28.0-62.0) fl RDW Coeff of [place] (11.0-15.0) % Plt Count (150-400) K/uL MPV (7.40-12.00) fL Neut % (Auto) (48.0-80.0) % Lymph % (Auto) (16.0-40.0) % [place] % (Auto) (0.0-15.0) % Eos % (Auto) (0.0-7.0) % Baso % (Auto) (0.0-1.5) % Neut # (Auto) (1.4-5.7) K/uL Lymph # (Auto) (0.6-2.4) K/uL [place] # (Auto) (0.0-0.8) K/uL Eos # (Auto) (0.0-0.7) K/uL Baso # (Auto) (0.0-0.1) K/uL Nucleated RBC % /100WBC Nucleated RBCs # K/uL INR APTT (18.6-31.3) SEC Sodium 139 (136-148) mmol/L Potassium 3.5 (3.5-5.1) mmol/L Chloride 104 (98-107) mmol/L Carbon Dioxide 23.6 (21.0-32.0) mmol/L BUN 15 (7.0-18.0) mg/dL Creatinine 1.0 (0.8-1.3) mg/dL Est Cr Clr Drug Dosing 76.49 mL/min Estimated GFR (MDRD) > 60.0 ml/min Glucose 136 H (74-106) mg/dL Hemoglobin A1c (4.5 - 6.2) % Calcium 9.1 (8.5-10.1) mg/dL Total Bilirubin 0.4 (0.2-1.0) mg/dL AST 18 (15-37) IU/L ALT 25 (14-63) IU/L Alkaline Phosphatase 75 (46-116) U/L Troponin I < 0.050 (0.000-0.056) ng/mL Total Protein 7.5 (6.4-8.2) g/dL Albumin 3.8 (3.4-5.0) g/dL Globulin 3.7 (2.6-4.0) g/dL Albumin/Globulin Ratio 1.0 (0.9-1.6) Lipase 75 (73-393) U/L TSH 3rd Generation 0.01 L (0.36-3.74) uIU/mL SARS-CoV-2 RNA ([facility]) NEGATIVE (NEGATIVE) Result Diagrams: 06/24/20 08:25 06/24/20 08:25 Imaging Impressions Last 24 hrs: CTA head and neck 06/24/2020 abrupt cut off of right vertebral arter just above origin with minimal perfusion distal vertebral artery CT head loss of marques white differentiation in right cerebellum Sepsis Event Note - Evaluation Sepsis Screening Result: No Definite Risk - Focused Exam Vital Signs: Vital Signs Temp Pulse Resp BP BP Pulse Ox 06/24/20 12:04 37.4 C 73 18 137/75 95 06/24/20 12:02 37.4 C 74 18 137/75 95 06/24/20 11:17 70 157/83 H 97 06/24/20 11:10 78 17 155/80 H 95 06/24/20 10:39 73 16 164/88 H 96 06/24/20 10:10 74 16 161/85 H 97 06/24/20 09:55 76 16 153/77 H 95 06/24/20 09:40 81 16 154/80 H 95 06/24/20 09:25 80 16 155/83 H 94 L 06/24/20 09:11 81 17 163/84 H 94 L 06/24/20 08:28 37.5 C 106 H 17 161/79 H 98 *Q Meaningful Use (ADM) - VTE *Q VTE Anticoagulation Contraindications: Med/TX Not Indicated/Need Consult PN Assessment/Plan (1) 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 Data on posterior strokes is limited. It is reasonable in many cases, but symptoms present nearly 24 hour upon presentation and finding seen on CT posing high risk for hemorrhage. -Start ASA 325 mg daily. Based on CADISS trial- no superiority of anticoagulation vs. anti platelets was noted, but overall risk was low, so inadequately powered. Anticoagualation probably poses a higher risk of hemorrhage, and with location and size of his stroke, hemorrhagic transformation could be catastrophic. I recommend ASA 325 mg for 10-14 days then transition to anticoagulation with warfarin or DOAC. -MRI brain w/o contrast eval extent of stroke -echo, telemetry -start high potency statin -lipid A1c -PT/OT/speech consult -permissive HTN up to 180/105 -Endovascular intervention data is limited, so risk / benefit is not established. It is generally reserved for cases of recurrent stroke despite antithrombotic therapy. Problem List Initiated/Reviewed/Updated: Yes
[2020-06-24] MEDS ORDERED: Labetalol 100 MG/20 ML MDV IVPUSH PRN (12:54)
[2020-06-24] MEDS: Acetaminophen 325 MG Tab PO PRN (16:14)
--- NOTE | 2020-06-24 18:02 | MR ---
Indication: Infarct. Technique: T1 sagittal as well as diffusion, FLAIR and T2 axial images were obtained. No IV contrast. Comparison : None available. Findings : There is a 15 mm acute infarct in the right cerebellum, associated with mild right posterior fossa mass effect and partial effacement of the 4th ventricle. The infarct extends to the right cerebellar tonsil. Additional small foci of acute cortical infarction are noted in the parasagittal aspects of the left occipital and right parietal lobes. A small focus of petechial hemorrhage is seen in the left occipital infarct. No additional intracranial hemorrhage. No global mass effect. No ventricular obstruction. Background mild small-vessel ischemic changes. Baseline minimal cerebral atrophy. Apparent abnormal flow void in the right posterior inferior cerebellar artery. Grossly normal flow voids are maintained in the remainder of the intracranial vascular structures. The craniovertebral junction is unremarkable, with a patent foramen magnum. Both temporal bones are well aerated. The paranasal sinuses are clear. Impression: 1. Large 50 mm acute infarct involving much of the right cerebellar hemisphere, sparing its inferomedial aspect. 2. Small acute cortical infarcts in the parasagittal left occipital lobe and parasagittal right parietal lobe. 3. Mild right posterior fossa mass effect at the present time. Petechial hemorrhage in the left occipital infarct, but no space-occupying hemorrhage. 4. Background mild small vessel ischemic change and minimal cerebral atrophy. Dictated by Derrick George MD @ 06/25/2020 9:03:[address] Derrick George @ Jun 25 2020 9:03AM
[2020-06-24] MEDS ORDERED: atorvaSTATin 40 MG Tab PO SCH (21:00)
[2020-06-25 06:04] LABS: BLOOD UREA NITROGEN,BUN 13 mg/dL (7.0-18.0); CARBON DIOXIDE,CO2 24.9 mmol/L (21.0-32.0); CHLORIDE,CL 105 mmol/L (98-107); GLUCOSE RANDOM 107 mg/dL (74-106); POTASSIUM,K 3.7 mmol/L (3.5-5.1); SODIUM,NA 138 mmol/L (136-148)
[2020-06-25] MEDS: Acetaminophen 325 MG Tab PO PRN ×2 (08:01→14:18)
--- NOTE | 2020-06-25 08:17 | PCM.PN ---
- General Info Date of Service: 06/25/20 Admission Dx/Problem (Free Text): Admission Diagnosis/Problem Admission Diagnosis/Problem Cerebellar infarction Subjective Update: Feeling improved today. Vision has improved a lot reports he is able to follow TV and watch this without significant vision impairment. Reports he is feeling more steady and more in control of arm and leg movements. Denies any chest pain and no shortness of breath. We did discuss possibility of the need of rehabilitation after this hospitalization patient is open but would prefer something closer home medicine [facility]. Case management is aware. Functional Status: Reports: Pain Controlled, Tolerating Diet, Ambulating (With assist), Urinating - Review of Systems General: Denies: Weakness, Fatigue, Malaise HEENT: Reports: Headaches (Has right-sided pain), Visual Changes (Much improved since yesterday). Denies: Sore Throat Pulmonary: Reports: No Symptoms. Denies: Shortness of Breath Cardiovascular: Reports: No Symptoms. Denies: Chest Pain Gastrointestinal: Reports: No Symptoms. Denies: Abdominal Pain, Nausea, Vomiting Genitourinary: Reports: No Symptoms. Denies: Dysuria, Frequency Musculoskeletal: Reports: No Symptoms Skin: Reports: No Symptoms Neurological: Reports: No Symptoms Psychiatric: Reports: No Symptoms - Patient Data Vitals - Most Recent: Last Vital Signs Temp 98.6 F 06/25/20 03:29 Pulse 66 06/25/20 03:29 Resp 19 06/25/20 03:29 BP 137/85 06/25/20 03:29 Pulse Ox 97 06/25/20 03:29 Weight - Most Recent: 95.118 kg I&O - Last 24 Hours: Intake & Output 06/24/20 06/25/20 06/25/20 22:59 06:59 14:59 Intake Total 1139 1200 Output Total 1950 Balance 1139 -750 Lab Results Last 24 Hours: Laboratory Results - last 24 hr 06/24/20 06/24/20 06/24/20 Range/Units 08:24 08:24 08:25 WBC 15.72 H (4.0-11.0) K/uL RBC 5.35 (4.50-5.90) M/uL Hgb 15.7 (13.0-17.0) g/dL Hct 45.3 (38.0-50.0) % MCV 84.7 (80.0-98.0) fL MCH 29.3 (27.0-32.0) pg MCHC 34.7 (31.0-37.0) g/dL RDW Std Deviation 44.9 (28.0-62.0) fl RDW Coeff of Madina 15 (11.0-15.0) % Plt Count 215 (150-400) K/uL MPV 11.00 (7.40-12.00) fL Neut % (Auto) 84.9 H (48.0-80.0) % Lymph % (Auto) 10.0 L (16.0-40.0) % [place] % (Auto) 4.9 (0.0-15.0) % Eos % (Auto) 0.1 (0.0-7.0) % Baso % (Auto) 0.1 (0.0-1.5) % Neut # (Auto) 13.4 H (1.4-5.7) K/uL Lymph # (Auto) 1.6 (0.6-2.4) K/uL [place] # (Auto) 0.8 (0.0-0.8) K/uL Eos # (Auto) 0.0 (0.0-0.7) K/uL Baso # (Auto) 0.0 (0.0-0.1) K/uL Nucleated RBC % 0.0 /100WBC Nucleated RBCs # 0 K/uL INR APTT (18.6-31.3) SEC Sodium (136-148) mmol/L Potassium (3.5-5.1) mmol/L Chloride (98-107) mmol/L Carbon Dioxide (21.0-32.0) mmol/L BUN (7.0-18.0) mg/dL Creatinine (0.8-1.3) mg/dL Est Cr Clr Drug Dosing mL/min Estimated GFR (MDRD) ml/min Glucose (74-106) mg/dL Hemoglobin A1c 5.7 (4.5 - 6.2) % Calcium (8.5-10.1) mg/dL Magnesium (1.8-2.4) mg/dL Total Bilirubin (0.2-1.0) mg/dL AST (15-37) IU/L ALT (14-63) IU/L Alkaline Phosphatase (46-116) U/L Troponin I (0.000-0.056) ng/mL Total Protein (6.4-8.2) g/dL Albumin (3.4-5.0) g/dL Globulin (2.6-4.0) g/dL Albumin/Globulin Ratio (0.9-1.6) Triglycerides (0-200) mg/dL Cholesterol (50-200) mg/dL LDL Cholesterol, Calc (60-180) mg/dL VLDL Cholesterol (5-55) mg/dL HDL Cholesterol (40-60) mg/dL Cholesterol/HDL Ratio (3.3-6.0) Lipase (73-393) U/L Free T4 1.34 (0.76-1.46) ng/dL Free T3 2.30 (2.18-3.98) pg/mL TSH 3rd Generation (0.36-3.74) uIU/mL Urine Color Urine Appearance Urine pH (5.0-8.0) Ur Specific [place] (1.001-1.035) Urine Protein (NEGATIVE) mg/dL Urine Glucose (UA) (NEGATIVE) mg/dL Urine Ketones (NEGATIVE) mg/dL Urine Occult Blood (NEGATIVE) Urine Nitrite (NEGATIVE) Urine Bilirubin (NEGATIVE) Urine Urobilinogen (<2.0) EU/dL Ur Leukocyte Esterase (NEGATIVE) Urine RBC (0-2/HPF) Urine WBC (0-5/HPF) Ur Epithelial Cells (NONE-FEW) Urine Bacteria (NEGATIVE) SARS-CoV-2 RNA (CHICHI) (NEGATIVE) 06/24/20 06/24/20 06/24/20 Range/Units 08:25 08:25 09:37 WBC (4.0-11.0) K/uL RBC (4.50-5.90) M/uL Hgb (13.0-17.0) g/dL Hct (38.0-50.0) % MCV (80.0-98.0) fL MCH (27.0-32.0) pg MCHC (31.0-37.0) g/dL RDW Std Deviation (28.0-62.0) fl RDW Coeff of Madina (11.0-15.0) % Plt Count (150-400) K/uL MPV (7.40-12.00) fL Neut % (Auto) (48.0-80.0) % Lymph % (Auto) (16.0-40.0) % [place] % (Auto) (0.0-15.0) % Eos % (Auto) (0.0-7.0) % Baso % (Auto) (0.0-1.5) % Neut # (Auto) (1.4-5.7) K/uL Lymph # (Auto) (0.6-2.4) K/uL [place] # (Auto) (0.0-0.8) K/uL Eos # (Auto) (0.0-0.7) K/uL Baso # (Auto) (0.0-0.1) K/uL Nucleated RBC % /100WBC Nucleated RBCs # K/uL INR 1.17 APTT 25.5 (18.6-31.3) SEC Sodium 139 (136-148) mmol/L Potassium 3.5 (3.5-5.1) mmol/L Chloride 104 (98-107) mmol/L Carbon Dioxide 23.6 (21.0-32.0) mmol/L BUN 15 (7.0-18.0) mg/dL Creatinine 1.0 (0.8-1.3) mg/dL Est Cr Clr Drug Dosing 76.49 mL/min Estimated GFR (MDRD) > 60.0 ml/min Glucose 136 H (74-106) mg/dL Hemoglobin A1c (4.5 - 6.2) % Calcium 9.1 (8.5-10.1) mg/dL Magnesium (1.8-2.4) mg/dL Total Bilirubin 0.4 (0.2-1.0) mg/dL AST 18 (15-37) IU/L ALT 25 (14-63) IU/L Alkaline Phosphatase 75 (46-116) U/L Troponin I < 0.050 (0.000-0.056) ng/mL Total Protein 7.5 (6.4-8.2) g/dL Albumin 3.8 (3.4-5.0) g/dL Globulin 3.7 (2.6-4.0) g/dL Albumin/Globulin Ratio 1.0 (0.9-1.6) Triglycerides (0-200) mg/dL Cholesterol (50-200) mg/dL LDL Cholesterol, Calc (60-180) mg/dL VLDL Cholesterol (5-55) mg/dL HDL Cholesterol (40-60) mg/dL Cholesterol/HDL Ratio (3.3-6.0) Lipase 75 (73-393) U/L Free T4 (0.76-1.46) ng/dL Free T3 (2.18-3.98) pg/mL TSH 3rd Generation 0.01 L (0.36-3.74) uIU/mL Urine Color Urine Appearance Urine pH (5.0-8.0) Ur Specific [place] (1.001-1.035) Urine Protein (NEGATIVE) mg/dL Urine Glucose (UA) (NEGATIVE) mg/dL Urine Ketones (NEGATIVE) mg/dL Urine Occult Blood (NEGATIVE) Urine Nitrite (NEGATIVE) Urine Bilirubin (NEGATIVE) Urine Urobilinogen (<2.0) EU/dL Ur Leukocyte Esterase (NEGATIVE) Urine RBC (0-2/HPF) Urine WBC (0-5/HPF) Ur Epithelial Cells (NONE-FEW) Urine Bacteria (NEGATIVE) SARS-CoV-2 RNA (CHICHI) NEGATIVE (NEGATIVE) 06/24/20 06/25/20 06/25/20 Range/Units 17:40 05:15 05:15 WBC 14.22 H (4.0-11.0) K/uL RBC 4.91 (4.50-5.90) M/uL Hgb 14.2 (13.0-17.0) g/dL Hct 41.6 (38.0-50.0) % MCV 84.7 (80.0-98.0) fL MCH 28.9 (27.0-32.0) pg MCHC 34.1 (31.0-37.0) g/dL RDW Std Deviation 45.1 (28.0-62.0) fl RDW Coeff of Madina 15 (11.0-15.0) % Plt Count 187 (150-400) K/uL MPV 11.40 (7.40-12.00) fL Neut % (Auto) 74.6 (48.0-80.0) % Lymph % (Auto) 17.5 (16.0-40.0) % [place] % (Auto) 7.2 (0.0-15.0) % Eos % (Auto) 0.6 (0.0-7.0) % Baso % (Auto) 0.1 (0.0-1.5) % Neut # (Auto) 10.6 H (1.4-5.7) K/uL Lymph # (Auto) 2.5 H (0.6-2.4) K/uL [place] # (Auto) 1.0 H (0.0-0.8) K/uL Eos # (Auto) 0.1 (0.0-0.7) K/uL Baso # (Auto) 0.0 (0.0-0.1) K/uL Nucleated RBC % 0.0 /100WBC Nucleated RBCs # 0 K/uL INR APTT (18.6-31.3) SEC Sodium 138 (136-148) mmol/L Potassium 3.7 (3.5-5.1) mmol/L Chloride 105 (98-107) mmol/L Carbon Dioxide 24.9 (21.0-32.0) mmol/L BUN 13 (7.0-18.0) mg/dL Creatinine 0.9 (0.8-1.3) mg/dL Est Cr Clr Drug Dosing 80.23 mL/min Estimated GFR (MDRD) > 60.0 ml/min Glucose 107 H (74-106) mg/dL Hemoglobin A1c (4.5 - 6.2) % Calcium 8.0 L (8.5-10.1) mg/dL Magnesium 1.9 (1.8-2.4) mg/dL Total Bilirubin (0.2-1.0) mg/dL AST (15-37) IU/L ALT (14-63) IU/L Alkaline Phosphatase (46-116) U/L Troponin I (0.000-0.056) ng/mL Total Protein (6.4-8.2) g/dL Albumin (3.4-5.0) g/dL Globulin (2.6-4.0) g/dL Albumin/Globulin Ratio (0.9-1.6) Triglycerides 120 (0-200) mg/dL Cholesterol 168 (50-200) mg/dL LDL Cholesterol, Calc 120 (60-180) mg/dL VLDL Cholesterol 24 (5-55) mg/dL HDL Cholesterol 24 L (40-60) mg/dL Cholesterol/HDL Ratio 7.0 H (3.3-6.0) Lipase (73-393) U/L Free T4 (0.76-1.46) ng/dL Free T3 (2.18-3.98) pg/mL TSH 3rd Generation (0.36-3.74) uIU/mL Urine Color YELLOW Urine Appearance HAZY Urine pH 6.5 (5.0-8.0) Ur Specific [place] 1.020 (1.001-1.035) Urine Protein NEGATIVE (NEGATIVE) mg/dL Urine Glucose (UA) NEGATIVE (NEGATIVE) mg/dL Urine Ketones 15 H (NEGATIVE) mg/dL Urine Occult Blood TRACE-INTACT H (NEGATIVE) Urine Nitrite NEGATIVE (NEGATIVE) Urine Bilirubin NEGATIVE (NEGATIVE) Urine Urobilinogen 0.2 (<2.0) EU/dL Ur Leukocyte Esterase NEGATIVE (NEGATIVE) Urine RBC 0-3 (0-2/HPF) Urine WBC 0-2 (0-5/HPF) Ur Epithelial Cells RARE (NONE-FEW) Urine Bacteria FEW (NEGATIVE) SARS-CoV-2 RNA (CHICHI) (NEGATIVE) Med Orders - Current: Current Medications Acetaminophen (Acetaminophen 325 Mg Tab) 650 mg PO Q4H PRN PRN Reason: Pain (Mild 1-3)/fever Last Admin: 06/25/20 08:01 Dose: 650 mg Documented by: Aspirin (Aspirin 325 Mg Tab.Ec) 325 mg PO DAILY [facility] Last Admin: 06/25/20 08:05 Dose: 325 mg Documented by: Atorvastatin Calcium (Atorvastatin 40 Mg Tab) 80 mg PO BEDTIME [facility] Last Admin: 06/24/20 20:40 Dose: 80 mg Documented by: Docusate Sodium (Docusate Sodium 100 Mg Cap) 100 mg PO DAILY [facility] Last Admin: 06/25/20 08:00 Dose: 100 mg Documented by: Labetalol HCl (Labetalol 100 Mg/20 Ml Mdv) 20 mg IVPUSH Q4H PRN PRN Reason: BP over 180/105 Multivitamins/Minerals/Vitamin C (Multivitamin Tab) 1 tab PO DAILY [facility] Last Admin: 06/25/20 08:00 Dose: 1 tab Documented by: Ondansetron HCl (Ondansetron 4 Mg/2 Ml Sdv) 4 mg IVPUSH Q4H PRN PRN Reason: Nausea Sodium Chloride (Sodium Chloride 0.9% 2.5 Ml Syringe) 2.5 ml FLUSH ASDIRECTED PRN PRN Reason: Keep Vein Open Discontinued Medications Aspirin (Aspirin 325 Mg Tab) 325 mg PO ONETIME ONE Stop: 06/24/20 09:58 Last Admin: 06/24/20 10:07 Dose: 325 mg Documented by: Sodium Chloride (Normal Saline) 1,000 mls @ 125 mls/hr IV NOW STA Stop: 06/24/20 16:33 Last Admin: 06/24/20 09:15 Dose: 125 mls/hr Documented by: Sodium Chloride (Normal Saline) 1,000 mls @ 999 mls/hr IV BOLUS ONE Stop: 06/24/20 09:34 Last Admin: 06/24/20 09:15 Dose: 999 mls/hr Documented by: Iopamidol (Iopamidol 755 Mg/Ml 500 Ml Multipack Bottle) 100 ml IVPUSH ONETIME STA Stop: 06/24/20 10:09 Last Admin: 06/24/20 10:09 Dose: 100 ml Documented by: Ondansetron HCl (Ondansetron 4 Mg/2 Ml Sdv) 4 mg IVPUSH ONETIME ONE Stop: 06/24/20 08:37 Last Admin: 06/24/20 09:15 Dose: 4 mg Documented by: Sodium Chloride (Sodium Chloride 0.9% 2.5 Ml Syringe) 2.5 ml FLUSH ASDIRECTED PRN PRN Reason: Keep Vein Open Sodium Chloride (Sodium Chloride 0.9% 10 Ml Syringe) 10 ml FLUSH ASDIRECTED PRN PRN Reason: Keep Vein Open Last Admin: 06/24/20 09:15 Dose: 10 ml Documented by: Sodium Chloride (Sodium Chloride 0.9% 2.5 Ml Syringe) 2.5 ml FLUSH ASDIRECTED PRN PRN Reason: Keep Vein Open Last Admin: 06/24/20 09:15 Dose: 2.5 ml Documented by: Sodium Chloride (Sodium Chloride 0.9% 10 Ml Sdv) 10 ml IV ASDIRECTED PRN PRN Reason: IV Use - Exam General: Alert, Oriented, Cooperative, No Acute Distress HEENT: Pupils Equal, Pupils Reactive, Other (Marked deviation of gaze to the left has improved significantly. Able to move eyes to the right much better today) Lungs: Clear to Auscultation, Normal Respiratory Effort Cardiovascular: Regular Rate, Regular Rhythm, No Murmurs GI/Abdominal Exam: Normal Bowel Sounds, Soft, Non-Tender Back Exam: Normal Inspection, Full Range of Motion Extremities: Normal Inspection, Normal Range of Motion, Non-Tender, No Pedal Edema Wound/Incisions: Healing Well Neurological: Other (Continues to have nystagmus in all directions. Marked deviation of gaze to the left has improved.). No: Normal Speech (Speech still depressed and slurred at times.) Psy/Mental Status: Alert, Normal Affect, Normal Mood - Patient Data Lab Results Last 24 hrs: Laboratory Results - last 24 hr 06/24/20 06/24/20 06/24/20 Range/Units 08:24 08:24 08:25 WBC 15.72 H (4.0-11.0) K/uL RBC 5.35 (4.50-5.90) M/uL Hgb 15.7 (13.0-17.0) g/dL Hct 45.3 (38.0-50.0) % MCV 84.7 (80.0-98.0) fL MCH 29.3 (27.0-32.0) pg MCHC 34.7 (31.0-37.0) g/dL RDW Std Deviation 44.9 (28.0-62.0) fl RDW Coeff of Mad[place] 15 (11.0-15.0) % Plt Count 215 (150-400) K/uL MPV 11.00 (7.40-12.00) fL Neut % (Auto) 84.9 H (48.0-80.0) % Lymph % (Auto) 10.0 L (16.0-40.0) % [place] % (Auto) 4.9 (0.0-15.0) % Eos % (Auto) 0.1 (0.0-7.0) % Baso % (Auto) 0.1 (0.0-1.5) % Neut # (Auto) 13.4 H (1.4-5.7) K/uL Lymph # (Auto) 1.6 (0.6-2.4) K/uL [place] # (Auto) 0.8 (0.0-0.8) K/uL Eos # (Auto) 0.0 (0.0-0.7) K/uL Baso # (Auto) 0.0 (0.0-0.1) K/uL Nucleated RBC % 0.0 /100WBC Nucleated RBCs # 0 K/uL INR APTT (18.6-31.3) SEC Sodium (136-148) mmol/L Potassium (3.5-5.1) mmol/L Chloride (98-107) mmol/L Carbon Dioxide (21.0-32.0) mmol/L BUN (7.0-18.0) mg/dL Creatinine (0.8-1.3) mg/dL Est Cr Clr Drug Dosing mL/min Estimated GFR (MDRD) ml/min Glucose (74-106) mg/dL Hemoglobin A1c 5.7 (4.5 - 6.2) % Calcium (8.5-10.1) mg/dL Magnesium (1.8-2.4) mg/dL Total Bilirubin (0.2-1.0) mg/dL AST (15-37) IU/L ALT (14-63) IU/L Alkaline Phosphatase (46-116) U/L Troponin I (0.000-0.056) ng/mL Total Protein (6.4-8.2) g/dL Albumin (3.4-5.0) g/dL Globulin (2.6-4.0) g/dL Albumin/Globulin Ratio (0.9-1.6) Triglycerides (0-200) mg/dL Cholesterol (50-200) mg/dL LDL Cholesterol, Calc (60-180) mg/dL VLDL Cholesterol (5-55) mg/dL HDL Cholesterol (40-60) mg/dL Cholesterol/HDL Ratio (3.3-6.0) Lipase (73-393) U/L Free T4 1.34 (0.76-1.46) ng/dL Free T3 2.30 (2.18-3.98) pg/mL TSH 3rd Generation (0.36-3.74) uIU/mL Urine Color Urine Appearance Urine pH (5.0-8.0) Ur Specific [place] (1.001-1.035) Urine Protein (NEGATIVE) mg/dL Urine Glucose (UA) (NEGATIVE) mg/dL Urine Ketones (NEGATIVE) mg/dL Urine Occult Blood (NEGATIVE) Urine Nitrite (NEGATIVE) Urine Bilirubin (NEGATIVE) Urine Urobilinogen (<2.0) EU/dL Ur Leukocyte Esterase (NEGATIVE) Urine RBC (0-2/HPF) Urine WBC (0-5/HPF) Ur Epithelial Cells (NONE-FEW) Urine Bacteria (NEGATIVE) SARS-CoV-2 RNA (CHICHI) (NEGATIVE) 06/24/20 06/24/20 06/24/20 Range/Units 08:25 08:25 09:37 WBC (4.0-11.0) K/uL RBC (4.50-5.90) M/uL Hgb (13.0-17.0) g/dL Hct (38.0-50.0) % MCV (80.0-98.0) fL MCH (27.0-32.0) pg MCHC (31.0-37.0) g/dL RDW Std Deviation (28.0-62.0) fl RDW Coeff of Mad[place] (11.0-15.0) % Plt Count (150-400) K/uL MPV (7.40-12.00) fL Neut % (Auto) (48.0-80.0) % Lymph % (Auto) (16.0-40.0) % [place] % (Auto) (0.0-15.0) % Eos % (Auto) (0.0-7.0) % Baso % (Auto) (0.0-1.5) % Neut # (Auto) (1.4-5.7) K/uL Lymph # (Auto) (0.6-2.4) K/uL [place] # (Auto) (0.0-0.8) K/uL Eos # (Auto) (0.0-0.7) K/uL Baso # (Auto) (0.0-0.1) K/uL Nucleated RBC % /100WBC Nucleated RBCs # K/uL INR 1.17 APTT 25.5 (18.6-31.3) SEC Sodium 139 (136-148) mmol/L Potassium 3.5 (3.5-5.1) mmol/L Chloride 104 (98-107) mmol/L Carbon Dioxide 23.6 (21.0-32.0) mmol/L BUN 15 (7.0-18.0) mg/dL Creatinine 1.0 (0.8-1.3) mg/dL Est Cr Clr Drug Dosing 76.49 mL/min Estimated GFR (MDRD) > 60.0 ml/min Glucose 136 H (74-106) mg/dL Hemoglobin A1c (4.5 - 6.2) % Calcium 9.1 (8.5-10.1) mg/dL Magnesium (1.8-2.4) mg/dL Total Bilirubin 0.4 (0.2-1.0) mg/dL AST 18 (15-37) IU/L ALT 25 (14-63) IU/L Alkaline Phosphatase 75 (46-116) U/L Troponin I < 0.050 (0.000-0.056) ng/mL Total Protein 7.5 (6.4-8.2) g/dL Albumin 3.8 (3.4-5.0) g/dL Globulin 3.7 (2.6-4.0) g/dL Albumin/Globulin Ratio 1.0 (0.9-1.6) Triglycerides (0-200) mg/dL Cholesterol (50-200) mg/dL LDL Cholesterol, Calc (60-180) mg/dL VLDL Cholesterol (5-55) mg/dL HDL Cholesterol (40-60) mg/dL Cholesterol/HDL Ratio (3.3-6.0) Lipase 75 (73-393) U/L Free T4 (0.76-1.46) ng/dL Free T3 (2.18-3.98) pg/mL TSH 3rd Generation 0.01 L (0.36-3.74) uIU/mL Urine Color Urine Appearance Urine pH (5.0-8.0) Ur Specific [place] (1.001-1.035) Urine Protein (NEGATIVE) mg/dL Urine Glucose (UA) (NEGATIVE) mg/dL Urine Ketones (NEGATIVE) mg/dL Urine Occult Blood (NEGATIVE) Urine Nitrite (NEGATIVE) Urine Bilirubin (NEGATIVE) Urine Urobilinogen (<2.0) EU/dL Ur Leukocyte Esterase (NEGATIVE) Urine RBC (0-2/HPF) Urine WBC (0-5/HPF) Ur Epithelial Cells (NONE-FEW) Urine Bacteria (NEGATIVE) SARS-CoV-2 RNA (CHICHI) NEGATIVE (NEGATIVE) 06/24/20 06/25/20 06/25/20 Range/Units 17:40 05:15 05:15 WBC 14.22 H (4.0-11.0) K/uL RBC 4.91 (4.50-5.90) M/uL Hgb 14.2 (13.0-17.0) g/dL Hct 41.6 (38.0-50.0) % MCV 84.7 (80.0-98.0) fL MCH 28.9 (27.0-32.0) pg MCHC 34.1 (31.0-37.0) g/dL RDW Std Deviation 45.1 (28.0-62.0) fl RDW Coeff of Mad[place] 15 (11.0-15.0) % Plt Count 187 (150-400) K/uL MPV 11.40 (7.40-12.00) fL Neut % (Auto) 74.6 (48.0-80.0) % Lymph % (Auto) 17.5 (16.0-40.0) % [place] % (Auto) 7.2 (0.0-15.0) % Eos % (Auto) 0.6 (0.0-7.0) % Baso % (Auto) 0.1 (0.0-1.5) % Neut # (Auto) 10.6 H (1.4-5.7) K/uL Lymph # (Auto) 2.5 H (0.6-2.4) K/uL [place] # (Auto) 1.0 H (0.0-0.8) K/uL Eos # (Auto) 0.1 (0.0-0.7) K/uL Baso # (Auto) 0.0 (0.0-0.1) K/uL Nucleated RBC % 0.0 /100WBC Nucleated RBCs # 0 K/uL INR APTT (18.6-31.3) SEC Sodium 138 (136-148) mmol/L Potassium 3.7 (3.5-5.1) mmol/L Chloride 105 (98-107) mmol/L Carbon Dioxide 24.9 (21.0-32.0) mmol/L BUN 13 (7.0-18.0) mg/dL Creatinine 0.9 (0.8-1.3) mg/dL Est Cr Clr Drug Dosing 80.23 mL/min Estimated GFR (MDRD) > 60.0 ml/min Glucose 107 H (74-106) mg/dL Hemoglobin A1c (4.5 - 6.2) % Calcium 8.0 L (8.5-10.1) mg/dL Magnesium 1.9 (1.8-2.4) mg/dL Total Bilirubin (0.2-1.0) mg/dL AST (15-37) IU/L ALT (14-63) IU/L Alkaline Phosphatase (46-116) U/L Troponin I (0.000-0.056) ng/mL Total Protein (6.4-8.2) g/dL Albumin (3.4-5.0) g/dL Globulin (2.6-4.0) g/dL Albumin/Globulin Ratio (0.9-1.6) Triglycerides 120 (0-200) mg/dL Cholesterol 168 (50-200) mg/dL LDL Cholesterol, Calc 120 (60-180) mg/dL VLDL Cholesterol 24 (5-55) mg/dL HDL Cholesterol 24 L (40-60) mg/dL Cholesterol/HDL Ratio 7.0 H (3.3-6.0) Lipase (73-393) U/L Free T4 (0.76-1.46) ng/dL Free T3 (2.18-3.98) pg/mL TSH 3rd Generation (0.36-3.74) uIU/mL Urine Color YELLOW Urine Appearance HAZY Urine pH 6.5 (5.0-8.0) Ur Specific [place] 1.020 (1.001-1.035) Urine Protein NEGATIVE (NEGATIVE) mg/dL Urine Glucose (UA) NEGATIVE (NEGATIVE) mg/dL Urine Ketones 15 H (NEGATIVE) mg/dL Urine Occult Blood TRACE-INTACT H (NEGATIVE) Urine Nitrite NEGATIVE (NEGATIVE) Urine Bilirubin NEGATIVE (NEGATIVE) Urine Urobilinogen 0.2 (<2.0) EU/dL Ur Leukocyte Esterase NEGATIVE (NEGATIVE) Urine RBC 0-3 (0-2/HPF) Urine WBC 0-2 (0-5/HPF) Ur Epithelial Cells RARE (NONE-FEW) Urine Bacteria FEW (NEGATIVE) SARS-CoV-2 RNA (CHICHI) (NEGATIVE) Result Diagrams: 06/25/20 05:15 06/25/20 05:15 Sepsis Event Note - Evaluation Sepsis Screening Result: No Definite Risk - Focused Exam Vital Signs: Vital Signs Temp Pulse Resp BP Pulse Ox 06/25/20 03:29 98.6 F 66 19 137/85 97 06/25/20 00:00 99.2 F 68 14 128/79 95 - Problem List & Annotations (1) 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 SNOMED Code(s): 413145113 Code(s): I63.9 - CEREBRAL INFARCTION, UNSPECIFIED; I77.70 - DISSECTION OF UNSPECIFIED ARTERY Status: Acute Current Visit: Yes - Problem List Review Problem List Initiated/Reviewed/Updated: Yes - My Orders Last 24 Hours: My Active Orders 06/24/20 Lunch Heart Healthy Diet [DIET] 06/24/20 12:02 Intake and Output [RC] Q12H Oxygen Therapy [RC] PRN Up With Assistance [RC] ASDIRECTED VTE/DVT Education [RC] PER UNIT ROUTINE Vital Signs [RC] Q4H Acetaminophen [TylenoL] 650 mg PO Q4H PRN Ondansetron [Zofran] 4 mg IVPUSH Q4H PRN Sodium Chloride 0.9% [Saline Flush] 2.5 ml FLUSH ASDIRECTED PRN Anticoagulation Contraindications VTE [AST] Per Unit Routine Saline Lock Insert [OM.PC] Routine 06/24/20 12:03 Antiembolic Devices [RC] PER UNIT ROUTINE Sequential Compression Device [OM.PC] Per Unit Routine 06/24/20 12:10 NIH Stroke Scale [RC] Q4H 06/24/20 12:26 Echo Comp wo Cont [US] Urgent 06/24/20 12:52 OT Evaluation and Treatment [CONS] Routine PT Evaluation and Treatment [CONS] Routine 06/24/20 12:54 Telemetry Monitoring [Cardiac Monitoring] [RC] Q8H Labetalol [Normodyne] 20 mg IVPUSH Q4H PRN 06/24/20 13:06 Communication Order [RC] PRN 06/24/20 13:08 Resuscitation Status Routine 06/24/20 21:00 atorvaSTATin [Lipitor] 80 mg PO BEDTIME 06/25/20 09:00 Aspirin [Ecotrin] 325 mg PO DAILY Docusate Sodium [Colace] 100 mg PO DAILY Multivitamins [Tab-A-Aminah] 1 tab PO DAILY - Plan Plan:: This 74-year-old male admitted with acute Ischemic stroke due to vertebral artery dissection 1. Acute ischemic stroke -Appreciate Dr. Espinoza's consultation and recommendations. -Brain without reveals extensive acute infarct of right cerebellum, bilateral occipital infarcts, punctate hemorrhage in the left occipital infarct -Echo echo results returned this afternoon. EF 60 to 65%, normal left ventricular systolic function, mildly increased left ventricular posterior wall thickness, normal pattern of LV diastolic filling, normal right ventricular size, wall thickness, and systolic function. There is mild aortic valve sclerosis without stenosis. Trace MR. Right ventricular systolic pressure is mildly to moderately elevated at 36.6 mmHg no regional wall abnormalities noted. -Monitor on telemetry for any arrhythmias -Neuro and NIH scales every 4 hours -Continue aspirin 325 mg daily for 10 to 14 days then consider transition to anticoagulation with warfarin or NOAC -Continue atorvastatin 80 LDL 120 -A1c 5.7 -TSH 0.01 consider reevaluation of this as an outpatient. -Permissive hypertension up until blood pressures of 180/105 we will order labetalol as needed, blood pressures have been fairly stable. -Consult PT OT to evaluate and treat, speech therapy unavailable at this time speech therapy available Sunday. -Hold any type of anticoagulation as transformation to hemorrhagic stroke as possible and would be catastrophic. -Arrange follow-up with Dr. Espinoza as well as PCP. -Recheck labwork in am, leukocytosis could be reactive from CVA. UA negative VTE prophylaxis: SCDs only due to risk of transformation to hemorrhagic stroke. CODE STATUS: DNR/DNI per discussion with patient Dispo: We will need monitoring for the next 2 to 3 days. Consider short-term rehabilitation at discharge.
--- NOTE | 2020-06-25 08:55 | PCM.CONSN ---
- General Info Date of Service: 06/25/20 Subjective Update: At about noon on June 23,, he developed nausea, vomiting and diarrhea. He was up vomiting throughout the night and noted dizziness, vertigo imbalance, left upper limb numbness and clumsiness during the night. He presented to ED morning of June 24 noted to have ataxia, nystagmus, appendicular dysmetria. CT head showed right cerebellar stroke. CTA showed occlusion of the vertebral artery characteristic of dissection. He reports improvement in his vision today. - Patient Data Vitals - Most Recent: Last Vital Signs Temp 37.1 C 06/25/20 08:00 Pulse 69 06/25/20 08:00 Resp 18 06/25/20 08:00 BP 148/78 H 06/25/20 08:00 Pulse Ox 97 06/25/20 08:00 Weight - Most Recent: 95.118 kg I&O - Last 24 Hours: Intake & Output 06/24/20 06/25/20 06/25/20 22:59 06:59 14:59 Intake Total 1139 1200 Output Total 1950 Balance 1139 -750 Lab Results Last 24 Hours: Laboratory Results - last 24 hr 06/24/20 06/24/20 06/24/20 Range/Units 08:24 08:24 08:25 WBC 15.72 H (4.0-11.0) K/uL RBC 5.35 (4.50-5.90) M/uL Hgb 15.7 (13.0-17.0) g/dL Hct 45.3 (38.0-50.0) % MCV 84.7 (80.0-98.0) fL MCH 29.3 (27.0-32.0) pg MCHC 34.7 (31.0-37.0) g/dL RDW Std Deviation 44.9 (28.0-62.0) fl RDW Coeff of [place] 15 (11.0-15.0) % Plt Count 215 (150-400) K/uL MPV 11.00 (7.40-12.00) fL Neut % (Auto) 84.9 H (48.0-80.0) % Lymph % (Auto) 10.0 L (16.0-40.0) % [place] % (Auto) 4.9 (0.0-15.0) % Eos % (Auto) 0.1 (0.0-7.0) % Baso % (Auto) 0.1 (0.0-1.5) % Neut # (Auto) 13.4 H (1.4-5.7) K/uL Lymph # (Auto) 1.6 (0.6-2.4) K/uL [place] # (Auto) 0.8 (0.0-0.8) K/uL Eos # (Auto) 0.0 (0.0-0.7) K/uL Baso # (Auto) 0.0 (0.0-0.1) K/uL Nucleated RBC % 0.0 /100WBC Nucleated RBCs # 0 K/uL INR APTT (18.6-31.3) SEC Sodium (136-148) mmol/L Potassium (3.5-5.1) mmol/L Chloride (98-107) mmol/L Carbon Dioxide (21.0-32.0) mmol/L BUN (7.0-18.0) mg/dL Creatinine (0.8-1.3) mg/dL Est Cr Clr Drug Dosing mL/min Estimated GFR (MDRD) ml/min Glucose (74-106) mg/dL Hemoglobin A1c 5.7 (4.5 - 6.2) % Calcium (8.5-10.1) mg/dL Magnesium (1.8-2.4) mg/dL Total Bilirubin (0.2-1.0) mg/dL AST (15-37) IU/L ALT (14-63) IU/L Alkaline Phosphatase (46-116) U/L Troponin I (0.000-0.056) ng/mL Total Protein (6.4-8.2) g/dL Albumin (3.4-5.0) g/dL Globulin (2.6-4.0) g/dL Albumin/Globulin Ratio (0.9-1.6) Triglycerides (0-200) mg/dL Cholesterol (50-200) mg/dL LDL Cholesterol, Calc (60-180) mg/dL VLDL Cholesterol (5-55) mg/dL HDL Cholesterol (40-60) mg/dL Cholesterol/HDL Ratio (3.3-6.0) Lipase (73-393) U/L Free T4 1.34 (0.76-1.46) ng/dL Free T3 2.30 (2.18-3.98) pg/mL TSH 3rd Generation (0.36-3.74) uIU/mL Urine Color Urine Appearance Urine pH (5.0-8.0) Ur Specific [place] (1.001-1.035) Urine Protein (NEGATIVE) mg/dL Urine Glucose (UA) (NEGATIVE) mg/dL Urine Ketones (NEGATIVE) mg/dL Urine Occult Blood (NEGATIVE) Urine Nitrite (NEGATIVE) Urine Bilirubin (NEGATIVE) Urine Urobilinogen (<2.0) EU/dL Ur Leukocyte Esterase (NEGATIVE) Urine RBC (0-2/HPF) Urine WBC (0-5/HPF) Ur Epithelial Cells (NONE-FEW) Urine Bacteria (NEGATIVE) SARS-CoV-2 RNA (CHICHI) (NEGATIVE) 06/24/20 06/24/20 06/24/20 Range/Units 08:25 08:25 09:37 WBC (4.0-11.0) K/uL RBC (4.50-5.90) M/uL Hgb (13.0-17.0) g/dL Hct (38.0-50.0) % MCV (80.0-98.0) fL MCH (27.0-32.0) pg MCHC (31.0-37.0) g/dL RDW Std Deviation (28.0-62.0) fl RDW Coeff of [place] (11.0-15.0) % Plt Count (150-400) K/uL MPV (7.40-12.00) fL Neut % (Auto) (48.0-80.0) % Lymph % (Auto) (16.0-40.0) % [place] % (Auto) (0.0-15.0) % Eos % (Auto) (0.0-7.0) % Baso % (Auto) (0.0-1.5) % Neut # (Auto) (1.4-5.7) K/uL Lymph # (Auto) (0.6-2.4) K/uL [place] # (Auto) (0.0-0.8) K/uL Eos # (Auto) (0.0-0.7) K/uL Baso # (Auto) (0.0-0.1) K/uL Nucleated RBC % /100WBC Nucleated RBCs # K/uL INR 1.17 APTT 25.5 (18.6-31.3) SEC Sodium 139 (136-148) mmol/L Potassium 3.5 (3.5-5.1) mmol/L Chloride 104 (98-107) mmol/L Carbon Dioxide 23.6 (21.0-32.0) mmol/L BUN 15 (7.0-18.0) mg/dL Creatinine 1.0 (0.8-1.3) mg/dL Est Cr Clr Drug Dosing 76.49 mL/min Estimated GFR (MDRD) > 60.0 ml/min Glucose 136 H (74-106) mg/dL Hemoglobin A1c (4.5 - 6.2) % Calcium 9.1 (8.5-10.1) mg/dL Magnesium (1.8-2.4) mg/dL Total Bilirubin 0.4 (0.2-1.0) mg/dL AST 18 (15-37) IU/L ALT 25 (14-63) IU/L Alkaline Phosphatase 75 (46-116) U/L Troponin I < 0.050 (0.000-0.056) ng/mL Total Protein 7.5 (6.4-8.2) g/dL Albumin 3.8 (3.4-5.0) g/dL Globulin 3.7 (2.6-4.0) g/dL Albumin/Globulin Ratio 1.0 (0.9-1.6) Triglycerides (0-200) mg/dL Cholesterol (50-200) mg/dL LDL Cholesterol, Calc (60-180) mg/dL VLDL Cholesterol (5-55) mg/dL HDL Cholesterol (40-60) mg/dL Cholesterol/HDL Ratio (3.3-6.0) Lipase 75 (73-393) U/L Free T4 (0.76-1.46) ng/dL Free T3 (2.18-3.98) pg/mL TSH 3rd Generation 0.01 L (0.36-3.74) uIU/mL Urine Color Urine Appearance Urine pH (5.0-8.0) Ur Specific [place] (1.001-1.035) Urine Protein (NEGATIVE) mg/dL Urine Glucose (UA) (NEGATIVE) mg/dL Urine Ketones (NEGATIVE) mg/dL Urine Occult Blood (NEGATIVE) Urine Nitrite (NEGATIVE) Urine Bilirubin (NEGATIVE) Urine Urobilinogen (<2.0) EU/dL Ur Leukocyte Esterase (NEGATIVE) Urine RBC (0-2/HPF) Urine WBC (0-5/HPF) Ur Epithelial Cells (NONE-FEW) Urine Bacteria (NEGATIVE) SARS-CoV-2 RNA (CHICHI) NEGATIVE (NEGATIVE) 06/24/20 06/25/20 06/25/20 Range/Units 17:40 05:15 05:15 WBC 14.22 H (4.0-11.0) K/uL RBC 4.91 (4.50-5.90) M/uL Hgb 14.2 (13.0-17.0) g/dL Hct 41.6 (38.0-50.0) % MCV 84.7 (80.0-98.0) fL MCH 28.9 (27.0-32.0) pg MCHC 34.1 (31.0-37.0) g/dL RDW Std Deviation 45.1 (28.0-62.0) fl RDW Coeff of [place] 15 (11.0-15.0) % Plt Count 187 (150-400) K/uL MPV 11.40 (7.40-12.00) fL Neut % (Auto) 74.6 (48.0-80.0) % Lymph % (Auto) 17.5 (16.0-40.0) % [place] % (Auto) 7.2 (0.0-15.0) % Eos % (Auto) 0.6 (0.0-7.0) % Baso % (Auto) 0.1 (0.0-1.5) % Neut # (Auto) 10.6 H (1.4-5.7) K/uL Lymph # (Auto) 2.5 H (0.6-2.4) K/uL [place] # (Auto) 1.0 H (0.0-0.8) K/uL Eos # (Auto) 0.1 (0.0-0.7) K/uL Baso # (Auto) 0.0 (0.0-0.1) K/uL Nucleated RBC % 0.0 /100WBC Nucleated RBCs # 0 K/uL INR APTT (18.6-31.3) SEC Sodium 138 (136-148) mmol/L Potassium 3.7 (3.5-5.1) mmol/L Chloride 105 (98-107) mmol/L Carbon Dioxide 24.9 (21.0-32.0) mmol/L BUN 13 (7.0-18.0) mg/dL Creatinine 0.9 (0.8-1.3) mg/dL Est Cr Clr Drug Dosing 80.23 mL/min Estimated GFR (MDRD) > 60.0 ml/min Glucose 107 H (74-106) mg/dL Hemoglobin A1c (4.5 - 6.2) % Calcium 8.0 L (8.5-10.1) mg/dL Magnesium 1.9 (1.8-2.4) mg/dL Total Bilirubin (0.2-1.0) mg/dL AST (15-37) IU/L ALT (14-63) IU/L Alkaline Phosphatase (46-116) U/L Troponin I (0.000-0.056) ng/mL Total Protein (6.4-8.2) g/dL Albumin (3.4-5.0) g/dL Globulin (2.6-4.0) g/dL Albumin/Globulin Ratio (0.9-1.6) Triglycerides 120 (0-200) mg/dL Cholesterol 168 (50-200) mg/dL LDL Cholesterol, Calc 120 (60-180) mg/dL VLDL Cholesterol 24 (5-55) mg/dL HDL Cholesterol 24 L (40-60) mg/dL Cholesterol/HDL Ratio 7.0 H (3.3-6.0) Lipase (73-393) U/L Free T4 (0.76-1.46) ng/dL Free T3 (2.18-3.98) pg/mL TSH 3rd Generation (0.36-3.74) uIU/mL Urine Color YELLOW Urine Appearance HAZY Urine pH 6.5 (5.0-8.0) Ur Specific [place] 1.020 (1.001-1.035) Urine Protein NEGATIVE (NEGATIVE) mg/dL Urine Glucose (UA) NEGATIVE (NEGATIVE) mg/dL Urine Ketones 15 H (NEGATIVE) mg/dL Urine Occult Blood TRACE-INTACT H (NEGATIVE) Urine Nitrite NEGATIVE (NEGATIVE) Urine Bilirubin NEGATIVE (NEGATIVE) Urine Urobilinogen 0.2 (<2.0) EU/dL Ur Leukocyte Esterase NEGATIVE (NEGATIVE) Urine RBC 0-3 (0-2/HPF) Urine WBC 0-2 (0-5/HPF) Ur Epithelial Cells RARE (NONE-FEW) Urine Bacteria FEW (NEGATIVE) SARS-CoV-2 RNA (CHICHI) (NEGATIVE) Med Orders - Current: Current Medications Acetaminophen (Acetaminophen 325 Mg Tab) 650 mg PO Q4H PRN PRN Reason: Pain (Mild 1-3)/fever Last Admin: 06/25/20 08:01 Dose: 650 mg Documented by: Aspirin (Aspirin 325 Mg Tab.Ec) 325 mg PO DAILY [facility] Last Admin: 06/25/20 08:05 Dose: 325 mg Documented by: Atorvastatin Calcium (Atorvastatin 40 Mg Tab) 80 mg PO BEDTIME [facility] Last Admin: 06/24/20 20:40 Dose: 80 mg Documented by: Docusate Sodium (Docusate Sodium 100 Mg Cap) 100 mg PO DAILY [facility] Last Admin: 06/25/20 08:00 Dose: 100 mg Documented by: Labetalol HCl (Labetalol 100 Mg/20 Ml Mdv) 20 mg IVPUSH Q4H PRN PRN Reason: BP over 180/105 Multivitamins/Minerals/Vitamin C (Multivitamin Tab) 1 tab PO DAILY [facility] Last Admin: 06/25/20 08:00 Dose: 1 tab Documented by: Ondansetron HCl (Ondansetron 4 Mg/2 Ml Sdv) 4 mg IVPUSH Q4H PRN PRN Reason: Nausea Sodium Chloride (Sodium Chloride 0.9% 2.5 Ml Syringe) 2.5 ml FLUSH ASDIRECTED PRN PRN Reason: Keep Vein Open Discontinued Medications Aspirin (Aspirin 325 Mg Tab) 325 mg PO ONETIME ONE Stop: 06/24/20 09:58 Last Admin: 06/24/20 10:07 Dose: 325 mg Documented by: Sodium Chloride (Normal Saline) 1,000 mls @ 125 mls/hr IV NOW STA Stop: 06/24/20 16:33 Last Admin: 06/24/20 09:15 Dose: 125 mls/hr Documented by: Sodium Chloride (Normal Saline) 1,000 mls @ 999 mls/hr IV BOLUS ONE Stop: 06/24/20 09:34 Last Admin: 06/24/20 09:15 Dose: 999 mls/hr Documented by: Iopamidol (Iopamidol 755 Mg/Ml 500 Ml Multipack Bottle) 100 ml IVPUSH ONETIME STA Stop: 06/24/20 10:09 Last Admin: 06/24/20 10:09 Dose: 100 ml Documented by: Ondansetron HCl (Ondansetron 4 Mg/2 Ml Sdv) 4 mg IVPUSH ONETIME ONE Stop: 06/24/20 08:37 Last Admin: 06/24/20 09:15 Dose: 4 mg Documented by: Sodium Chloride (Sodium Chloride 0.9% 2.5 Ml Syringe) 2.5 ml FLUSH ASDIRECTED PRN PRN Reason: Keep Vein Open Sodium Chloride (Sodium Chloride 0.9% 10 Ml Syringe) 10 ml FLUSH ASDIRECTED PRN PRN Reason: Keep Vein Open Last Admin: 06/24/20 09:15 Dose: 10 ml Documented by: Sodium Chloride (Sodium Chloride 0.9% 2.5 Ml Syringe) 2.5 ml FLUSH ASDIRECTED PRN PRN Reason: Keep Vein Open Last Admin: 06/24/20 09:15 Dose: 2.5 ml Documented by: Sodium Chloride (Sodium Chloride 0.9% 10 Ml Sdv) 10 ml IV ASDIRECTED PRN PRN Reason: IV Use - Exam Physical Findings Comments:: Mental Status: General: Normal activity, good hygiene, appropriate appearance. Level of consciousness: Awake, alert. Cranial Nerves: VFFTC, PERRL, EOM nystagmus in all directions of gaze, Mild cerebellar dysarthria. Motor: Power 5/5 throughout. Sensation: Sensation is intact to temperature. Coordination: Finger to nose mildly impaired on the left, heel to sherman impaired bilaterally. Gait: mild truncal ataxia with sitting eyes closed, gait not assessed. CTA head and neck 06/24/2020 abrupt cut off of right vertebral arter just above origin with minimal perfusion distal vertebral artery CT head loss of marques white differentiation in right cerebellum MRI brain w/o contrast 06/24/2020 extensive acute infarct of right cerebellum, bilateral occipital infarcts, punctate hemorrhage in left occipital infarct Labs 06/24/2020 HgbA1c 5.7 LDL 120 Sepsis Event Note - Evaluation Sepsis Screening Result: No Definite Risk - Focused Exam Vital Signs: Vital Signs Temp Pulse Resp BP Pulse Ox 06/25/20 08:00 37.1 C 69 18 148/78 H 97 06/25/20 03:29 37.0 C 66 19 137/85 97 06/25/20 00:00 37.3 C 68 14 128/79 95 Consult PN Assessment/Plan (1) 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 Based on these ranges, I would defer consideration of BP medication to outpatient follow up. Continue ASA 325 mg daily. Transition to warfarin or NOAC 10-14 days after stroke 07/03 07/07 when risk of hemorrhagic transformation is lower. -echo pending, telemetry -Lipitor 80 mg -PT/OT/speech Problem List Initiated/Reviewed/Updated: Yes
[2020-06-25] MEDS ORDERED: Aspirin 325 MG Tab.EC PO SCH (09:00)
[2020-06-25] MEDS ORDERED: Multivitamin Tab PO SCH (09:00)
[2020-06-25] MEDS ORDERED: Docusate Sodium 100 MG Cap PO SCH (09:00)
[2020-06-25] MEDS ORDERED: Acetaminophen/HYDROcodone 325-5 MG Tab PO PRN (15:50)
[2020-06-25] MEDS ORDERED: Morphine 2 MG/ML SYRINGE IVPUSH ONE (15:53)
--- NOTE | 2020-06-25 16:07 | CT ---
INDICATION: Recent CVA. Headache. TECHNIQUE: CT head without contrast. COMPARISON: CT and MRI head June 24, 2020. FINDINGS: CSF spaces: Within normal limits for age. Brain parenchyma and extra-axial spaces: No change in appearance of the right cerebellar infarct. No new or enlarging area of ischemia. No acute intracranial hemorrhage. No significant mass effect or midline shift Skull base and calvarium: The visualized paranasal sinuses and mastoid air cells demonstrate no acute or significant findings. The visualized orbits are grossly unremarkable. No skull fractures. IMPRESSION: No change from yesterday`s exam. Stable right cerebellar infarct. No sign of hemorrhagic transformation or other new abnormality. Please note that all CT scans at this facility use dose modulation, iterative reconstruction, and/or weight-based dosing when appropriate to reduce radiation dose to as low as reasonably achievable. Dictated by Aries Valera MD @ 06/25/2020 4:05:[address] Aries Valera @ Jun 25 2020 4:05PM
--- NOTE | 2020-06-25 16:32 | PCM.DCSUM1 ---
Discharge Summary - Hospital Course Brief History: This 73-year-old male with little to no past medical history presented to the ER today with complaints of balance issues along with dizziness and left upper limb numbness along with clumsiness. He reports yesterday around noonhe started having some nausea and vomiting along with diarrhea. He reports he was up vomiting most of the night. He also reports difficulty with vision as he feels that may be doubled or like his vision is crossed which he reports started maybe around 5:00 in the evening. He reports that he is having difficulty walking likely secondary to his vision and feels very out of sorts when trying to walk. He denies any trauma no recent falls or motor vehicle accidents. He denies any fevers chills, neck pain, palpitations, chest pain, shortness of breath. He denies any abdominal pain no constipation or diarrhea, no dysuria or troubles urinating. Denies any black or bloody bowel movements. He denies recreational drug use and no alcohol use. He reports he does not use tobacco on a regular basis but does intermittently smoke cigars. He denies any family history of CAD, diabetes and or stroke. Reports his father did have a stroke in his mid 80s but otherwise most of family is otherwise healthy. In the ER leukocytosis noted at 15,000 sodium 139, potassium 3.5, BUN 15 creatinine 1.0 glucose 136. Troponin negative TSH 0.01 T4 1.34 T3 2.3 Covid negative. Due to stroke symptoms head CT was obtained which was noted to have question evolving loss of marques-white differentiation within the right superior and inferior cerebellum which may represent subacute infarct. CTA of head and neck were then obtained secondary to findings on head CT. CTA of head and neck revealed complete occlusion of the right vertebral artery extending from its origin to its proximal to mid intracranial segment with retrograde filling of the mid d istal intracranial segment by way of retrograde flow from the basilar trunk. No intracranial large vessel occlusion or flow-limiting stenosis, mildly patent cervical internal carotid artery and left vertebral artery. On-call neurologist Dr. Espinoza was consulted by ER physician at this time. Patient is outside of the window for TPA and recommended initiation of antiplatelet therapy with full dose aspirin at [address] Espinoza will consult and felt patient was safe for admission within our facility. 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 SNOMED Code(s): 914387668 ICD Code: I63.9 - CEREBRAL INFARCTION, UNSPECIFIED; I77.70 - DISSECTION OF UNSPECIFIED ARTERY Status: Acute Current Visit: Yes - Patient Summary/Data Consults: Consultations 06/24/20 12:52 OT Evaluation and Treatment [CONS] Routine PT Evaluation and Treatment [CONS] Routine Hospital Course: Admission diagnoses 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 Patient was approximately 16 or greater hours post normal symptoms and was not a TPA candidate. Dr. Espinoza neurology consult and felt he was stable for admission within our facility. Patient remained stable vital signs stable. Headache has been noted since arrival but this afternoon headache started to worsen. No worsening neurological findings. Repeat CT performed this afternoon due to worsening headache. No transformation to hemorrhage noted but per verbal discussion with Dr. Espinoza worsening edema is noted. She spoke with Dr. Farrell, neurosurgery in [place] who recommended transfer to ICU for further evaluation and treatment. Patient has been treated with aspirin 325 mg daily along with atorvastatin 80 mg. Patient given morphine 2 mg IV for headache along with [place] 06/21/2024. Blood pressure has remained stable until recent headache. Blood pressures have been slightly elevated 170s over 80s. Patient will be transferred via air ambulance to [facility] with Dr Hood, NEENA MD accepting physician an promotions executive is tied up with patient care but aware of patient. Patient notified and in agreement with transfer for further evaluation and treatment. - Patient Instructions Diet: NPO - Discharge Plan *PRESCRIPTION DRUG MONITORING PROGRAM REVIEWED*: Not Applicable *COPY OF PRESCRIPTION DRUG MONITORING REPORT IN PATIENT SIS: Not Applicable Home Medications: Home Meds Multivitamin 1 each PO DAILY 06/24/20 [History] Aspirin [Ecotrin EC] 325 mg PO DAILY tab.ec 06/25/20 [Rx] Labetalol [Normodyne] 20 mg IVPUSH Q4H PRN mdv 06/25/20 [Rx] atorvaSTATin [Lipitor] 80 mg PO BEDTIME tablet 06/25/20 [Rx] Referrals: Fermin Barbour MD [Physician] - 07/05/20 2:30 pm - Discharge Summary/Plan Comment DC Time >30 min.: No - Patient Data Vitals - Most Recent: Last Vital Signs Temp 97.4 F 06/25/20 13:39 Pulse 68 06/25/20 13:39 Resp 20 06/25/20 13:39 BP 156/98 H 06/25/20 13:39 Pulse Ox 96 06/25/20 13:39 Weight - Most Recent: 95.118 kg I&O - Last 24 hours: Intake & Output 06/25/20 06/25/20 06/25/20 06:59 14:59 22:59 Intake Total 1200 Output Total 1950 Balance -750 Lab Results - Last 24 hrs: Laboratory Results - last 24 hr 06/24/20 06/25/20 06/25/20 Range/Units 17:40 05:15 05:15 WBC 14.22 H (4.0-11.0) K/uL RBC 4.91 (4.50-5.90) M/uL Hgb 14.2 (13.0-17.0) g/dL Hct 41.6 (38.0-50.0) % MCV 84.7 (80.0-98.0) fL MCH 28.9 (27.0-32.0) pg MCHC 34.1 (31.0-37.0) g/dL RDW Std Deviation 45.1 (28.0-62.0) fl RDW Coeff of [place] 15 (11.0-15.0) % Plt Count 187 (150-400) K/uL MPV 11.40 (7.40-12.00) fL Neut % (Auto) 74.6 (48.0-80.0) % Lymph % (Auto) 17.5 (16.0-40.0) % [place] % (Auto) 7.2 (0.0-15.0) % Eos % (Auto) 0.6 (0.0-7.0) % Baso % (Auto) 0.1 (0.0-1.5) % Neut # (Auto) 10.6 H (1.4-5.7) K/uL Lymph # (Auto) 2.5 H (0.6-2.4) K/uL [place] # (Auto) 1.0 H (0.0-0.8) K/uL Eos # (Auto) 0.1 (0.0-0.7) K/uL Baso # (Auto) 0.0 (0.0-0.1) K/uL Nucleated RBC % 0.0 /100WBC Nucleated RBCs # 0 K/uL Sodium 138 (136-148) mmol/L Potassium 3.7 (3.5-5.1) mmol/L Chloride 105 (98-107) mmol/L Carbon Dioxide 24.9 (21.0-32.0) mmol/L BUN 13 (7.0-18.0) mg/dL Creatinine 0.9 (0.8-1.3) mg/dL Est Cr Clr Drug Dosing 80.23 mL/min Estimated GFR (MDRD) > 60.0 ml/min Glucose 107 H (74-106) mg/dL Calcium 8.0 L (8.5-10.1) mg/dL Magnesium 1.9 (1.8-2.4) mg/dL Triglycerides 120 (0-200) mg/dL Cholesterol 168 (50-200) mg/dL LDL Cholesterol, Calc 120 (60-180) mg/dL VLDL Cholesterol 24 (5-55) mg/dL HDL Cholesterol 24 L (40-60) mg/dL Cholesterol/HDL Ratio 7.0 H (3.3-6.0) Urine Color YELLOW Urine Appearance HAZY Urine pH 6.5 (5.0-8.0) Ur Specific [place] 1.020 (1.001-1.035) Urine Protein NEGATIVE (NEGATIVE) mg/dL Urine Glucose (UA) NEGATIVE (NEGATIVE) mg/dL Urine Ketones 15 H (NEGATIVE) mg/dL Urine Occult Blood TRACE-INTACT H (NEGATIVE) Urine Nitrite NEGATIVE (NEGATIVE) Urine Bilirubin NEGATIVE (NEGATIVE) Urine Urobilinogen 0.2 (<2.0) EU/dL Ur Leukocyte Esterase NEGATIVE (NEGATIVE) Urine RBC 0-3 (0-2/HPF) Urine WBC 0-2 (0-5/HPF) Ur Epithelial Cells RARE (NONE-FEW) Urine Bacteria FEW (NEGATIVE) Med Orders - Current: Current Medications Acetaminophen (Acetaminophen 325 Mg Tab) 650 mg PO Q4H PRN PRN Reason: Pain (Mild 1-3)/fever Last Admin: 06/25/20 14:18 Dose: 650 mg Documented by: Hydrocodone Bitart/Acetaminophen (Acetaminophen/Hydrocodone 325-5 Mg Tab) 1 tab PO Q4H PRN PRN Reason: Pain Last Admin: 06/25/20 16:09 Dose: 1 tab Documented by: Aspirin (Aspirin 325 Mg Tab.Ec) 325 mg PO DAILY [facility] Last Admin: 06/25/20 08:05 Dose: 325 mg Documented by: Atorvastatin Calcium (Atorvastatin 40 Mg Tab) 80 mg PO BEDTIME [facility] Last Admin: 06/24/20 20:40 Dose: 80 mg Documented by: Docusate Sodium (Docusate Sodium 100 Mg Cap) 100 mg PO DAILY [facility] Last Admin: 06/25/20 08:00 Dose: 100 mg Documented by: Labetalol HCl (Labetalol 100 Mg/20 Ml Mdv) 20 mg IVPUSH Q4H PRN PRN Reason: BP over 180/105 Multivitamins/Minerals/Vitamin C (Multivitamin Tab) 1 tab PO DAILY [facility] Last Admin: 06/25/20 08:00 Dose: 1 tab Documented by: Ondansetron HCl (Ondansetron 4 Mg/2 Ml Sdv) 4 mg IVPUSH Q4H PRN PRN Reason: Nausea Sodium Chloride (Sodium Chloride 0.9% 2.5 Ml Syringe) 2.5 ml FLUSH ASDIRECTED PRN PRN Reason: Keep Vein Open Discontinued Medications Aspirin (Aspirin 325 Mg Tab) 325 mg PO ONETIME ONE Stop: 06/24/20 09:58 Last Admin: 06/24/20 10:07 Dose: 325 mg Documented by: Sodium Chloride (Normal Saline) 1,000 mls @ 125 mls/hr IV NOW STA Stop: 06/24/20 16:33 Last Admin: 06/24/20 09:15 Dose: 125 mls/hr Documented by: Sodium Chloride (Normal Saline) 1,000 mls @ 999 mls/hr IV BOLUS ONE Stop: 06/24/20 09:34 Last Admin: 06/24/20 09:15 Dose: 999 mls/hr Documented by: Iopamidol (Iopamidol 755 Mg/Ml 500 Ml Multipack Bottle) 100 ml IVPUSH ONETIME STA Stop: 06/24/20 10:09 Last Admin: 06/24/20 10:09 Dose: 100 ml Documented by: Morphine Sulfate (Morphine 2 Mg/Ml Syringe) 2 mg IVPUSH ONETIME ONE Stop: 06/25/20 15:54 Last Admin: 06/25/20 16:10 Dose: 2 mg Documented by: Ondansetron HCl (Ondansetron 4 Mg/2 Ml Sdv) 4 mg IVPUSH ONETIME ONE Stop: 06/24/20 08:37 Last Admin: 06/24/20 09:15 Dose: 4 mg Documented by: Sodium Chloride (Sodium Chloride 0.9% 2.5 Ml Syringe) 2.5 ml FLUSH ASDIRECTED PRN PRN Reason: Keep Vein Open Sodium Chloride (Sodium Chloride 0.9% 10 Ml Syringe) 10 ml FLUSH ASDIRECTED PRN PRN Reason: Keep Vein Open Last Admin: 06/24/20 09:15 Dose: 10 ml Documented by: Sodium Chloride (Sodium Chloride 0.9% 2.5 Ml Syringe) 2.5 ml FLUSH ASDIRECTED PRN PRN Reason: Keep Vein Open Last Admin: 06/24/20 09:15 Dose: 2.5 ml Documented by: Sodium Chloride (Sodium Chloride 0.9% 10 Ml Sdv) 10 ml IV ASDIRECTED PRN PRN Reason: IV Use *Q Meaningful Use (DIS) - VTE *Q VTE Anticoagulation Contraindications: Med/TX Not Indicated/Need
--- NOTE | 2020-06-28 15:13 | ECHO ---
EXAM DATE: 06/24/20 PATIENT'S AGE: 74 The ECHO report has been scanned into [employer] and can be seen in this patient's EMR (Electronic Medical Record) under the REPORTS section. The report has also been scanned into PACS. MARTIR
== END 2020-06-25 17:10 | DRG 64 ==
LOC: MW.ED 08:28 → MW.MS 11:09
PROVIDERS: ADMIT Internal Medicine; ATTEND Internal Medicine
DX: I63.9 Cerebral infarction, unspecified (principal); R47.81 Slurred speech; G93.6 Cerebral edema; I77.74 Dissection of vertebral artery; Z66 Do not resuscitate; F17.200 Nicotine dependence, unspecified, uncomplicated; I10 Essential (primary) hypertension; R29.702 NIHSS score 2; Z20.822 Contact with and (suspected) exposure to COVID-19
CPT/HCPCS: 36415; 70450; 70496; 70498; 71045; 80053; 83036; 83690; 84439; 84443; 84481; 84484; 85025; 85610; 85730; 93005; 96374; 99285; A9270; J2405; J7030 ×2; Q9967; U0002; 70551; 70551-26; 80048; 80061; 81001; 83735; 93010; 93306; 97110-GP; 97162-GP; 97165-GO; 99284; J2270